=== PATIENT | male | born 1955 | race Caucasian/White ===

== ENCOUNTER 2017-10-23 20:46 | Inpatient (IN) | payer OTHER, SELFPAY ==
[2017-10-23 20:48] VITALS: BP 144/82; PULSE 120; RESP 16; TEMP 37.1; O2SAT 98; BMI 21.5
--- NOTE | 2017-10-23 21:24 | ED.VISSUMM ---
- ER Visit Summary Date of Service: 10/23/17 Chief Complaint: Abdominal mass and abdominal pain History of Present Illness: The patient is a 62 M just recently in the last several days diagnosed with a large left abdominal mass of uncertain etiology. Could be a renal mass versus lymphoma versus other. He had a CAT scan done including clinic [place] in the last 2 days. He also had a chest CT showing a left pleural effusion with metastases to his chest. Basically he has been feeling well his primary care physician told him to come to [facility] he can be admitted here and see oncology here. He denies any chest pain. He denies any hemoptysis. He has never had a DVT or PE. He denies any leg swelling. Physical Examination: Vital signs are stable. He is tachycardic at 120 his pulse ox 90% on room air. No distress. HEENT exam unremarkable neck nontender lungs clear to auscultation bilaterally. Diminished in the left base. Heart tachycardic rate of 120 no murmur. Abdomen soft he does have fullness in his left side of his abdomen. Normal bowel sounds no peritoneal signs. Moving all 4 extremities. Calves nontender no edema no cords. Neurologically is awake alert without focal motor deficits. Test Results: CBC shows a white count 13.9. H&H of 10 and 34. 510,000 platelets. No old labs available for comparison. Chemistries unremarkable except creatinine 1.62. Liver enzymes negative. Chest x-ray shows a moderate size left pleural effusion. Emergency Department Course and Treatment: 62-year-old male recently diagnosed abdominal mass that clinically and by imaging appears to be a malignancy with metastases to his left chest. He has not had a biopsy done at this time nor is he seen oncology. Treatment Plan: Repeat exam the patient is doing well at 2251. I spoke to his family. The plan will be to have him admitted to the hospitalist for oncology consultation tomorrow. Disposition: Admission Impression: Acute left abdominal mass with metastases to the left lung of uncertain etiology Left pleural effusion This note was generated with [employer] dictation software. It may contain incorrect words, spelling, and punctuation that were not noted in review of the chart prior to signing ED Disposition - Plan for ED Patient: Chief Complaint: Abd Pain Referrals: Comfort Johnson MD [Primary Care Provider] -
--- NOTE | 2017-10-23 21:27 | ED.DCSUM_ITS ---
- ER Visit Summary Date of Service: 10/23/17 Chief Complaint: Abdominal mass and abdominal pain History of Present Illness: The patient is a 62 M just recently in the last several days diagnosed with a large left abdominal mass of uncertain etiology. Could be a renal mass versus lymphoma versus other. He had a CAT scan done including clinic [place] in the last 2 days. He also had a chest CT showing a left pleural effusion with metastases to his chest. Basically he has been feeling well his primary care physician told him to come to [facility] he can be admitted here and see oncology here. He denies any chest pain. He denies any hemoptysis. He has never had a DVT or PE. He denies any leg swelling. Physical Examination: Vital signs are stable. He is tachycardic at 120 his pulse ox 90% on room air. No distress. HEENT exam unremarkable neck nontender lungs clear to auscultation bilaterally. Diminished in the left base. Heart tachycardic rate of 120 no murmur. Abdomen soft he does have fullness in his left side of his abdomen. Normal bowel sounds no peritoneal signs. Moving all 4 extremities. Calves nontender no edema no cords. Neurologically is awake alert without focal motor deficits. Test Results: CBC shows a white count 13.9. H&H of 10 and 34. 510,000 platelets. No old labs available for comparison. Chemistries unremarkable except creatinine 1.62. Liver enzymes negative. Chest x-ray shows a moderate size left pleural effusion. Emergency Department Course and Treatment: 62-year-old male recently diagnosed abdominal mass that clinically and by imaging appears to be a malignancy with metastases to his left chest. He has not had a biopsy done at this time nor is he seen oncology. Treatment Plan: Repeat exam the patient is doing well at 2251. I spoke to his family. The plan will be to have him admitted to the hospitalist for oncology consultation tomorrow. Disposition: Admission Impression: Acute left abdominal mass with metastases to the left lung of uncertain etiology Left pleural effusion This note was generated with [employer] dictation software. It may contain incorrect words, spelling, and punctuation that were not noted in review of the chart prior to signing ED Disposition - Plan for ED Patient: Chief Complaint: Abd Pain Referrals: Comfort Johnson MD [Primary Care Provider] -
[2017-10-23] MEDS: morphine 8 MG/ML Syringe 6 MG IV (21:36)
[2017-10-23] MEDS: Ondansetron 4 MG/2 ML Vial IV (21:36)
--- NOTE | 2017-10-23 21:40 | RAD_ITS ---
STUDY: X-RAY CHEST REASON FOR EXAM: Male, 62 years old. SHORTNESS OF BREATH, UPPER ABDOMEN PAIN TECHNIQUE: Single AP portable view of the chest. COMPARISON: None. FINDINGS: The lungs are clear and expanded. Large left pleural effusion. There is mild cardiac enlargement. Normal mediastinum and gilma. Normal visualized pulmonary arteries. Normal visualized aortic arch and descending thoracic aorta. Normal visualized thoracic spine. Normal visualized ribs, clavicles, and shoulders. There is no demonstrated abnormality of the visualized soft tissue structures of the upper abdomen. RAD/Chest 1 View (Portable) IMPRESSION: Large left pleural effusion. Electronically Signed: Cedrick Mahoney MD at 21:50 EDT , Service support ,
[2017-10-23 21:58] LABS: Absolute Lymphocyte Count 2.55 X10^3/ul (0.83-4.51); Absolute Neutrophil Count 9.6 X10^3/uL (2.0-7.7); Basophil# 0.07 X10^3/uL; Basophil% 0.5 % (0-1); Eosinophil# 0.63 X10^3/uL; Eosinophils% 4.5 % (0-5); Hematocrit 34.2 % (40-54); Hemoglobin 10.6 g/dl (13.0-16.5); Lymphocyte # 2.55 X10^3/ul (4.0); Lymphocyte % 18.4 % (19-41); Mean Corpuscular Hgb 25.1 pg (27.0-32.0); Mean Platelet Vol. 8.4 fl (6.2-12.0); Monocyte# 1.01 X10^3/uL; Monocyte% 7.3 % (0-10); Neutrophil # 9.59 X10^3/uL (2.7-7.7); Neutrophil % 69.2 % (47-70); Platelet Count 510 K/mm3 (150-450); RBC Distribution Width CV 13.2 % (11.6-14.6); RBC Distribution Width SD 38.7 fl (35.1-43.9); Red Blood Count 4.22 M/mm3 (4.6-6.2); White Blood Count 13.9 K/mm3 (4.4-11.0)
[2017-10-23 21:59] LABS: POSITIVE COUNT NO; POSITIVE DIFFERENTIAL NO; POSITIVE MORPHOLOGY NO
[2017-10-23 22:09] LABS: ALB/GLOB Ratio 0.7 RATIO (0.9-2.4); AST(SGOT) 21 U/L (15-37); Alanine Aminotransfer ALT/SGPT 11 U/L (16-61); Alkaline Phosphatase 93 U/L (45-117); Anion Gap 14 (5-15); BUN 22 mg/dL (7-18); BUN/Creat Ratio 13.6 RATIO (10-20); Calcium,Total 9.4 mg/dL (8.5-10.1); Chloride 98 mmol/L (98-107); Creatinine, Serum 1.62 mg/dL (0.70-1.30); EST Glomerular Filtration Rate 46 mL/min (>60); Est Glom Filt Rate - Afr Amer 56 mL/min (>60); Estimated Creatinine Clearance 46.28 ml/min; Globulin 4.2 g/dL (2.2-4.2); Glucose 115 mg/dL (74-106); Potassium 4.3 mmol/L (3.5-5.1); Protein, Total 7.2 g/dL (6.4-8.2); Sodium Level 138 mmol/L (136-145)
[2017-10-23 23:12] VITALS: BP 140/86; PULSE 108; RESP 22; O2SAT 95
[2017-10-23 23:30] VITALS: BP 135/79; PULSE 105; RESP 24; TEMP 37.1; O2SAT 95
--- NOTE | 2017-10-23 23:45 | PCM.HP.STD ---
Problem List (1) Abdominal mass Status: Acute (2) Pleural effusion, left Status: Acute History of Present Illness Date of Admission: 10/23/17 Chief Complaint: Abdominal pain The patient is a 62 year old M previously healthy male who presents with abdominal pain.. Patient stated that 3 months ago after moving some furniture he began to have back pain and left flank pain. Since her pain was not resolving he sought a consult with a primary care physician. After further investigations patient was noted to have left renal mass on Ultrasound. A Follow-up abdominal CT scan showed a 16 cm x 20 cm x [address] chest showed large left pleural effusion with lymph adenopathy; and subpleural nodular diverticula nodular density involving his lungs; metastasis could not be excluded. Reports of images were accessed through patient's online portal (via phone) and showed at the time of history taking. Because of this concerning findings patient and his PCP decided that patient should seek consult with oncology at [facility]. The was advised that he should come to ED if his symptoms worsens; and indeed he realized that coming to the emergency department will expedite the process of meeting oncologist. Associated with his symptoms is shortness of breath, nausea, fatigue and weight loss of about 20 pounds in the last 3 months. Chest x-ray at the ED confirmed large left pleural effusion. Past Medical History Medical History: Medical History (Last Updated 10/24/17 @ 00:42 by Braxton Fam MD) Hyperlipemia E78.5 Allergies No Known Allergies Allergy (Verified 10/23/17 20:50) Home Medications: Ambulatory Orders Medication Instructions Recorded Atorvastatin Calcium [Lipitor] 20 mg PO QHS 10/23/17 traMADol [Ultram (G)] 50 mg PO Q4H PRN PRN 10/23/17 Surgical History: no surgical history Psychiatric History: No pertinent psych hx Lives: With Family Smoking Status: Former smoker Tobacco Use: Non-smoker Drugs: None - *Family History Maternal History Items: Dementia Review of Systems Constitutional: Reports: Anorexia, Weight Change, Fatigue Eyes: Denies: Blurred vision, Pain HEENT: Denies: Head Aches, Sinus Congestion, Sinus Drainage Cardiovascular: Denies: Chest Pain, Palpitations Respiratory: Denies: Cough, Shortness of breath at rest, Sputum production Gastrointestinal: Reports: Abdominal Pain Genitourinary: Denies: Dysuria Musculoskeletal: Reports: Back Pain Skin: Denies: Rash, Wounds Neurological: Denies: Numbness, Tingling, Focal weakness Psychiatric: Denies: Anxiety, Depression, Homicidal Ideations, Suicidal Ideations Hematologic/ Lymphatic: Denies: Petechiae, Purpura VTE Information - Inpt Only VTE Present on Admission: No VTE Mechan Device Prophylaxis: None VTE Pharm Prophylaxis ordered?: Yes Patient Problems: Active and Suspected Problems Abdominal mass (Acute) Pleural effusion, left (Acute) - Physical Exam General: Alert, Oriented x3, Cooperative HEENT: Atraumatic, PERRLA, EOMI, Normocephalic Neck: Supple Lungs: Diminished - At the left meddle and left lower lung moreno Cardiovascular: Regular rate, No murmurs Abdomen: Tender, - - Left mid abdominal fullness Extremities: No edema, Capillary Refill Less than 3 Seconds Skin: No rashes, No breakdown Musculoskeletal: No Tenderness to Palpation of Joints or Extremities Neurological: Cranial nerves II-XII grossly intact Psych/Mental Status: Normal Affect, Appropriate Vital Signs Temp Pulse Resp BP Pulse Ox 98.7 F 105 H 24 H 135/79 H 95 10/23/17 23:30 10/23/17 23:30 10/23/17 23:30 10/23/17 23:30 10/23/17 23:30 Oxygen Delivery Method Room Air Weight: 70.1 kg Body Mass Index (BMI) 21.5 Laboratory Tests Past 24 Hrs 10/23/17 10/23/17 21:30 21:30 WBC 13.9 H RBC 4.22 L Hgb 10.6 L Hct 34.2 L MCV 81.0 MCH 25.1 L MCHC 31.0 L RDW 13.2 RDW Differential 38.7 Plt Count 510 H MPV 8.4 Immature Gran % (Auto) 0.100 Neut % (Auto) 69.2 Lymph % (Auto) 18.4 L [place] % (Auto) 7.3 Eos % (Auto) 4.5 Baso % (Auto) 0.5 Absolute Neuts (auto) 9.6 H Absolute Lymphs (auto) 2.55 Total Counted Not Reportable Sodium 138 Potassium 4.3 Chloride 98 Carbon Dioxide 26.0 Anion Gap 14 BUN 22 H Creatinine 1.62 H Estim Creat Clear Calc 46.28 Est GFR (MDRD) Af Amer 56 L Est GFR (MDRD) Non-Af 46 L BUN/Creatinine Ratio 13.6 Glucose 115 H Calcium 9.4 Total Bilirubin 0.40 AST 21 ALT 11 L Alkaline Phosphatase 93 Total Protein 7.2 Albumin 3.0 L Globulin 4.2 Albumin/Globulin Ratio 0.7 L Assessment/Plan All Active Problems Abdominal mass (Acute) Pleural effusion, left (Acute) This is a 52 previously healthy male with abdominal pain and radiographic findings of left abdominal mass and left pleural effusion . Abdominal mass As needed morphine and oxycodone for pain As needed Zofran for nausea Nursing Communication to help retrieve imaging and medical history from [facility]. Oncology consulted. Left pleural effusion Will keep the patient n.p.o. for thoracentesis. PT/INR ordered Labs for pleural fluid including cytology ordered Interventional radiology consult for thoracentesis. Hyperlipidemia Continue Lipitor DVT prophylaxis Lovenox. Code Visit Inpatient E&M: 47171 Init Hosp L2
[2017-10-24] VITALS (10 sets, daily range): BP systolic 98–144; BP diastolic 59–88; PULSE 95–103; RESP 16–20; TEMP 36.4–37.2; O2SAT 93–97; BMI 19.8
--- NOTE | 2017-10-24 | IMM_PTH ---
PATIENT: ALEXANDRIA MOSES LOC: MS3 U#:[id number] AGE/SX: 62/M ROOM: [facility] – [place] RE10/23/[address]: Dr. Fabian Lema MD : 1955 BED: 1 DIS: 10/25/2017 SPEC #: [id number] RECD: 10/25/17 11:08 STATUS: PITA REQ #: [id number] DALIA: 10/24/17 00:[address]: Fabian Lema DEPT: IMMUNOHISTOCHEMISTRY RECD BY: Isabella Dao ENTERED: 10/25/17 11:10 SP TYPE: IMMUNO OTHR DR: MD Dr. Ramos Ferguson MD Dr. Joseph Agyepong, MD Dr. Mansour Isckarus, MD Tissues: THORACIC FLUID Procedures: BCL-2 (add) BCL-6 (add) CD10 (add) CD20 (add) CD23 (add) CD3 (add) CD30 (add) CD43 (add) CD45 (add) CD5 (add) CD79A (add) CK20 (add) CK7 (add) CK8 (add) CYCLIN (add) KI-67 (add) Pankeratin (initial) PHYSICIAN & [place] [id number] SPECIMEN INFORMATION: Tissue Source: Thoracentesis fluid Clinical Info: Left pleural effusion Specimen Number: [id number] CPT code: 28086, 97698 x16 METHODOLOGY: Deparaffinized sections of prefer/formalin-fixed tissue or PAP/DQ stained slides are incubated with monoclonal/polyclonal antibodies/oligonucleotide probes. Localization is made via biotin free immunoperoxidase method. Appropriate controls are performed and reacted as expected. Results on target cell population are indicated in the following table: RESULTS: ANTIBODY / CLONE RESULT AE1-3 (AE1/AE3/PCK26) negative CK7 (OV-TL12/30) negative CK8 (36oftuS64) negative CK20 (KS20.8) negative CD3 (PS1) negative CD5 (SP10) negative CD20 (L26) positive CD43 (L60) positive CD45 (RP2/18) positive CD79a (11E3) positive CD10 (56C6) negative CD23 (1B12) negative CD30 (Fabricio-H2) negative BCL-2 (bcl-2/100/D5) positive BCL-6 (RC135I/A8) negative Cyclin D1/BCL-1 (SP4) negative Ki-67 (30-9) positive These tests were developed and their performance characteristics determined by [facility]. They may not have been cleared or approved by the U.S. Food and Drug Administration. The FDA has determined that such clearance or approval is not necessary. INTERPRETATION: Thoracentesis fluid: Consistent with involvement by non-Hodgkin B-cell lymphoma. SJ:fidelia 10/26/17 Case has been reviewed in consultation with Dr. Maurer who concurs with the above diagnosis. IDC:AM
--- NOTE | 2017-10-24 | FLU_PTH ---
PATIENT: ALEXANDRIA MOSES LOC: MS3 U#:[id number] AGE/SX: 62/M ROOM: [facility] – [place] RE10/23/[address]: Dr. Fabian Lema MD : 1955 BED: 1 DIS: 10/25/2017 SPEC #: [id number] RECD: 10/24/17 11:18 STATUS: PITA REQ #: [id number] DALIA: 10/24/17 00:[address]: Fabian Lema DEPT: CYTOLOGY RECD BY: Baudilio Slade ENTERED: 10/24/17 11:18 SP TYPE: Fluid OTHR DR: MD Dr. Ramos Ferguson MD Dr. Joseph Agyepong, MD Dr. Mansour Isckarus, MD Tissues: THORACIC FLUID Procedures: Pap Stain (control) Special Stain Group II Surgery Specimen Level IV Cell Block Cytospin Fluid HEADER OPERATION: Ultrasound-guided left thoracentesis PRE-OP DIAGNOSIS: Left pleural effusion TISSUE SUBMITTED: Thoracentesis fluid for cytology DIAGNOSIS CYTOLOGY Left thoracentesis fluid for cytology (cytospin and cell block): Atypical lymphocytes present consistent with involvement by non-Hodgkin B-cell lymphoma. See comment. SJ:rg 10/26/17 COMMENT Immunohistochemistry ([id number]) supports the above diagnosis. Please also make reference to surgical specimen [id number]. Case has been reviewed in consultation with Dr. Maurer who concurs with the above diagnosis. IDC:AM CYTOLOGY STUDY Slides are reviewed. CYTOLOGY GROSS Received is 100 ml of red cloudy fluid labeled with the patient's name and and designated per the requisition as thoracentesis. Submitted for cytology preparation including cell block. 10/24/17 TC:0 CPT: 84404, 43641
[2017-10-24 00:35] LABS: International Normalized Ratio 1.1; Prothrombin Time (Protime)PT. 13.8 SECONDS (11.7-14.9)
--- NOTE | 2017-10-24 06:00 | US_ITS ---
PROCEDURE: ULTRASOUND GUIDED THORACENTESIS. DATE: October 24, 2017. INDICATION: Male, 62 years old. Left pleural effusion PHYSICIAN: Ramos Gore M.D. PROCEDURE: The risks, benefits, and alternatives to the procedure were explained to the patient. The specific risks of bleeding, infection, and pneumothorax requiring chest tube insertion were discussed and accepted. Written informed consent was obtained. Ultrasonographic evaluation of the left lower pleural space was carried out. An adequate pocket was identified. The patient was placed in the sitting, upright position. The overlying skin was prepped and draped in sterile fashion. 1% lidocaine was administered subcutaneously for local anesthesia. Under ultrasound guidance, a 6 Serbian thoracentesis needle/catheter system was advanced into the left posterior lower pleural fluid collection. Approximately 1020 mL of trip-colored fluid was drained. The catheter was removed, and a sterile dressing was applied. A specimen was collected and sent to the laboratory for analysis, as requested by the referring clinician. The patient tolerated the procedure well. A chest x-ray was ordered. US/Thoracentesis W US IMPRESSION: Ultrasound-guided left thoracentesis. Electronically Signed: Ramos Gore MD at 10:46 EDT Tel [phone], Service support ,
[2017-10-24 06:11] LABS: Hemoglobin 10.3 g/dl (13.0-16.5); Mean Corp Hgb Conc 31.2 g/gl (32-36); Mean Corpuscular Hgb 25.8 pg (27.0-32.0); Mean Corpuscular Volume 82.5 fL (80-94); Mean Platelet Vol. 8.6 fl (6.2-12.0); Platelet Count 505 K/mm3 (150-450); RBC Distribution Width CV 13.2 % (11.6-14.6); White Blood Count 10.9 K/mm3 (4.4-11.0)
[2017-10-24 06:13] LABS: LDH 358 U/L (87-241)
[2017-10-24 06:14] LABS: Scan Indicated on CBC? Y/N NO
--- NOTE | 2017-10-24 08:08 | PCM.PN.HOSP ---
Patient Problems: Active and Suspected Problems (Last Updated 10/24/17 @ 00:42 by Braxton Fam MD) Abdominal mass (Acute) Pleural effusion, left (Acute) Subjective: Patient is a 62 year old gentleman presented with abdominal pain associated with significant weight loss over the last couple of months patient was found to have a large sided left-sided pleural effusion for which she has been admitted for subsequent evaluation in the hospital. He is due to undergo ultrasound-guided thoracocentesis Objective: GENERAL: Appears cachectic HEENT: Clear conjunctiva, NECK; supple, normal thyroid, CHEST: Diminished to auscultation bilaterally, HEART: Regular S1 S2, no audible murmurs ABDOMEN: soft, non-tender, normoactive bowel sounds, RECTAL: deferred EXTREMITIES: No edema, no cyanosis. PROFESSOR OF CHEMICAL ENGINEERING: Awake; no lateralizing signs. SKIN: No Rash Vitals/I&O's: Vital Signs Temp Pulse Resp BP Pulse Ox 98.4 F 100 18 133/88 H 93 10/24/17 06:15 10/24/17 06:15 10/24/17 06:15 10/24/17 06:15 10/24/17 06:15 Oxygen Delivery Method Room Air Weight: 64.5 kg Body Mass Index (BMI) 19.8 Intake and Output for Last 24 Hours 10/22/17 10/23/17 10/24/17 23:59 23:59 23:59 Intake Total 0 / 0 Balance 0 / 0 Laboratory Results 10/24/17 05:30: Lactate Dehydrogenase 358 H 10/24/17 05:30: WBC 10.9, RBC 4.00 L, Hgb 10.3 L, Hct 33.0 L, MCV 82.5, MCH 25.8 L, MCHC 31.2 L, RDW 13.2, RDW Differential 39.0, Plt Count 505 H, MPV 8.6 Current Medications Atorvastatin Calcium (Lipitor) 20 mg PO QHS CARMELLA Bisacodyl (Dulcolax) 5 mg PO DAILY PRN PRN PRN Reason: Constipation Enoxaparin Sodium (Lovenox) 40 mg SC DAILY@1000 CARMELLA Last Admin: 10/24/17 07:34 Dose: Not Given Magnesium Hydroxide (Milk Of Magnesia) 30 ml PO DAILY PRN PRN PRN Reason: Constipation Morphine Sulfate () 1 - 2 mg IV Q4H PRN PRN PRN Reason: PAIN Ondansetron HCl (Zofran) 4 mg IV Q6H PRN PRN PRN Reason: NAUSEA/VOMITING Oxycodone HCl (Oxyir) 5 - 10 mg PO Q4H PRN PRN PRN Reason: PAIN Sodium Chloride () 5 - 30 ml IV UD PRN PRN Reason: SALINE FLUSH Medical Necessity - Tobacco Use Smoking Status: Former smoker Tobacco Use: Non-smoker Assessment/Plan All Active Problems (Last Updated 10/24/17 @ 00:42 by Braxton Fam MD) Abdominal mass (Acute) Pleural effusion, left (Acute) Patient is a 62-year-old gentleman who presents with abdominal pain CT obtained as outpatient apparently demonstrated 16 x 20 x [address] of the chest also demonstrated large left-sided pleural effusion with lymphadenopathy and nodular density involving the lungs metastatic disease could not be ruled out subsequently admitted to regular nursing floor for further management 1. Abdominal mass patient to be malignant. Requisition sent for records 2. Large sided left-sided pleural effusion ultrasound-guided thoracocentesis ordered 3. Suspected metastatic lung disease consult placed to pulmonary medicine 4. Dyslipidemia-patient is on statin therapy, continued at home dose 5. DVT prophylaxis SC enoxaparin Clinical Impression(s) from Imaging Studies Chest X-Ray 10/23/17 21:40 IMPRESSION: Large left pleural effusion. Electronically Signed: Cedrick Mahoney MD at 21:50 EDT , Service support , Active Medications Atorvastatin Calcium (Lipitor) 20 mg PO QHS CARMELLA Bisacodyl (Dulcolax) 5 mg PO DAILY PRN PRN PRN Reason: Constipation Enoxaparin Sodium (Lovenox) 40 mg SC DAILY@1000 CARMELLA Last Admin: 10/24/17 07:34 Dose: Not Given Magnesium Hydroxide (Milk Of Magnesia) 30 ml PO DAILY PRN PRN PRN Reason: Constipation Morphine Sulfate () 1 - 2 mg IV Q4H PRN PRN PRN Reason: PAIN Ondansetron HCl (Zofran) 4 mg IV Q6H PRN PRN PRN Reason: NAUSEA/VOMITING Oxycodone HCl (Oxyir) 5 - 10 mg PO Q4H PRN PRN PRN Reason: PAIN Sodium Chloride () 5 - 30 ml IV UD PRN PRN Reason: SALINE FLUSH Code Visit Inpatient E&M: 18832 Subs Hosp L3
--- NOTE | 2017-10-24 08:17 | CT_ITS ---
STUDY: CT ABDOMEN AND PELVIS WITH CONTRAST REASON FOR EXAM: Male, 62 years old. Left-sided mass. 20 pound weight loss in 3 months. Left pleural effusion. RADIATION DOSAGE (If Supplied By Facility): CTDIvol = ( 0 ) mGy, DLP = ( 0 ) mGycm TECHNIQUE: Transaxial images were obtained from the dome of the diaphragm to the symphysis pubis without oral contrast. 100 ml of Isovue 300 contrast was administered. Sagittal and coronal images were reconstructed. Individualized dose optimization techniques were used for this CT. COMPARISON: None. FINDINGS: Left pleural effusion with underlying infiltration and/or atelectasis mild increased markings in the right lung base. The visualized portions of the heart are within normal limits. There is a 16.4 cm x 17.9 cm x 17.9 cm inhomogeneous mass in the left upper quadrant and left mid abdomen displacing the spleen anteriorly. The left kidney is not visualized separately from this mass. There is also evidence of multiple soft tissue masses scattered throughout the abdomen as well as within the mesentery and in the region of the arlette hepatis. These masses extend into the pelvis in the retroperitoneal region and extending into the lateral aspects of the pelvis worse on the left side. Findings are suggestive of diffuse lymphadenopathy. A retroperitoneal sarcoma cannot be ruled out. Normal liver. Contrast is seen within the gallbladder lumen. Normal spleen. Normal pancreas. Normal bilateral adrenal glands. Small right renal cysts. The left kidney is engulfed within the large soft tissue mass. Normal visualized stomach. Normal small intestine. Normal colon. The appendix is visualized and appears normal. Normal abdominal aorta. Normal inferior vena cava. There is retroperitoneal lymphadenopathy with enlarged nodes greater than 10-15mm in the short axis. Normal urinary bladder. There are prostatic calcifications. Normal abdominal wall. There are degenerative changes of the visualized lumbar spine. CT/Abdomen/Pelvis WITH Contrast IMPRESSION: Extensive masses in the abdomen and pelvis as described. The differential diagnoses should include diffuse extensive lymphadenopathy or sarcoma. The left kidney is involved within this mass. A primary left renal cell carcinoma is less likely. Left pleural effusion with underlying atelectasis. Electronically Signed: Ramos Gore MD at 10:27 EDT Tel [phone], Service support ,
--- NOTE | 2017-10-24 08:17 | CT_ITS ---
STUDY: CT CHEST WITHOUT CONTRAST REASON FOR EXAM: Male, 62 years old. Left abdominal mass and 20 pound weight loss. Left pleural effusion. RADIATION DOSAGE (If Supplied By Facility): CTDIvol = ( 13.01 ) mGy, DLP = ( 1815.08 ) mGycm TECHNIQUE: Transaxial imaging was performed without the administration of intravenous contrast material. Multiplanar coronal and sagittal images were reformatted. Individualized dose optimization techniques were used for this CT. COMPARISON: None. FINDINGS: Large left pleural effusion with volume loss and atelectasis in the left lung. There is shift of the heart and mediastinal structures towards the left side of the midline. The left lung is well aerated. Mild increased markings are also seen in the left upper lobe suggestive of compressive atelectasis. Mild increased markings at the right lung base. Normal heart and pericardium. Normal mediastinum. Normal hilar regions. Normal unenhanced pulmonary arteries. Normal aorta arch and descending thoracic aorta. Normal osseous structures. Large inhomogeneous masses are seen in the upper abdomen. These were detailed on the separate CT scan of the abdomen report. CT/Chest WITH Contrast IMPRESSION: Large left pleural effusion with underlying atelectasis and/or infiltration. Mild increased markings in the left upper lobe. Upper abdominal masses as described. Electronically Signed: Ramos Gore MD at 10:29 EDT Tel [phone], Service support ,
--- NOTE | 2017-10-24 09:09 | NURSING ---
Pt off of floor at CT- call recieved from [facility] whom would like pt at 0930 for thoracentesis, will contact CT to take pt to US when CT is finished
--- NOTE | 2017-10-24 10:05 | RAD_ITS ---
STUDY: X-RAY CHEST REASON FOR EXAM: Male, 62 years old. The patient is status post left thoracentesis. TECHNIQUE: AP expiration and inspiration views. COMPARISON: Comparison is made with prior study dated October 23, 2017. FINDINGS: The patient is status post left thoracentesis. Residual small left pleural effusion with underlying infiltration and/or atelectasis. There is no evidence of pneumothorax. RAD/Chest Insp/Exp 2 View IMPRESSION: Status post left thoracentesis. Small residual left pleural effusion with underlying infiltration and/or atelectasis. Electronically Signed: Ramos Gore MD at 11:07 EDT Tel [phone], Service support ,
[2017-10-24 10:22] LABS: Cytology, Body Fluid / CSF SEE PATHOLOGY REPORT
[2017-10-24 10:43] LABS: Body Fluid Mononuclear WBC # 1.456 10^3/uL; Body Fluid Mononuclear WBC % 90.5 %; Body Fluid Polynuclear WBC # 0.153 10^3/uL; Body Fluid Polynuclear WBC % 9.5 %; Body Fluid Total Cells Counted 1.766 10^3/ul; White Blood Count/Body Fluid 1.609 10^3/uL
[2017-10-24 12:04] LABS: Glucose, Body Fluid 64 mg/dL (40-70); LDH,Body Fluid 370 Units/l (Not Establ.)
[2017-10-24 12:29] LABS: Appearance/Body Fluid SL CLDY; Auto B Fluid Analyzer BKGD Ct COUNTS W/IN LIMITS (W/IN LIMITS); Color/Body Fluid YELLOW; Source- Body Fluid THORACENTESIS
[2017-10-24 12:32] LABS: Lymphocytes 32 %; Monocytes 17 %; Neutrophil (Segs) 12 %; Other Cell Type/BF 39 %
[2017-10-24 12:34] LABS: Body Fluid QC Type(s) BF1Q
--- NOTE | 2017-10-24 14:15 | CASEMGMT ---
RN REX Face to Face with patient for initial transition planning/care coordination assessment. RN CM introduced self and role at [facility]. Patient lying in bed, alert and oriented, family at bedside. Patient willing to participate in assessment and is able to answer all questions appropriately. Care providers, pharmacy, and demographics verified. See link attached. Patient wishes to discharge home, denies need for home health at this time. Patient states he has no further needs or concerns at this time. CM to follow for discharge planning needs that may arise. Disposition Plan: Patient to discharge home with family support and follow-up plans in place.
--- NOTE | 2017-10-24 16:43 | ONC.CON.INP2 ---
- Problem List (1) Abdominal mass Status: Acute (2) Lymphadenopathy Status: Acute (3) Pleural effusion, left Status: Acute Consult Referring Physician: Hospitalist service Consult Results: Left upper quadrant abdominal mass, left pleural effusion and lymphadenopathy Subjective Date of Service:: 10/24/17 Chief Complaint: abd pain and SOB History of Present Illness: Patient is a 62-year-old male was no prior history of malignancy who has had increasing left upper quadrant abdominal pain over the past 3 months. Initially he thought it was a muscle strain after moving a couch but as symptoms progressed he was seen by his family physician at [place] and CT scans of the chest abdomen and pelvis at an outside hospital and again at [facility] revealed generalized lymph node enlargement, a large left pleural effusion and a huge left upper quadrant abdominal mass. The patient experienced increasing pain and dyspnea and came to the emergency room on October 23 and was admitted. A therapeutic and diagnostic thoracocentesis was done October 24 where a liter of trip colored fluid was drained and sent for pathology. The patient experienced improvement in his dyspnea with the procedure. Past Medical/Surgical History: Past Medical History - Most Recent Inpatient Visit Past Medical History Start: 10/24/17 00:08 Text: Status: Complete Freq: ONCE Protocol: Document 10/24/17 00:08 [facility] (Rec: 10/24/17 00:22 [facility] [id number]) BMI Required to complete PMH What is Patient's BMI 19.8 Past Medical History Unable History Recalled No Query Text:Pt Unable/Family Not Present Neurologic Medical History Hx Stroke/TIA No Hx Dementia/Alzheimer's No Hx Parkinson's Disease No Hx Seizures No Hx Multiple Sclerosis No Hx Migraines No Cardiac Medical History VTE Present on Admission No Hx of Deep Vein Thrombosis/VTE/PE No Hx Hypertension No Hx Chest Pain/Angina No Hx Heart Attack No Hx Cardiac Surgery/Stents/Etc. No Hx Heart Failure No Hx Pacemaker/AICD No Hx Irregular Heartbeat and/or Afib Yes Hx Anticoagulant Therapy No Query Text:(Coumadin, Aspirin, Plavix, Xarelto, etc.) Hx Pain in Legs when Walking/Leg Cramps No Respiratory Medical History Hx COPD No Hx Emphysema No Hx Smoking Yes Smoking Status Former smoker Hx Tobacco Use in last 12 months Yes Sent to [facility] Yes Hx Sleep Apnea No Do you snore loudly (louder than talking No or can be heard through closed doors)? Do you often feel tired/ fatigued/ No sleepy during daytime? Has anyone observed you stop breathing No during sleep? STOP Results Negative GI Medical History Hx Ulcer No Hx Hepatitis No Hx Cirrhosis No Hx GI Bleed No Hx Unplanned Weight Loss Yes Genitourinary Medical History Indwelling Catheter in Place on Arrival/ No Admission Hx Renal Disease No Hx Dialysis No Musculoskeletal History Hx Arthritis No Hx Rheumatoid Arthritis No Endocrine Medical History Hx Diabetes No Hx Thyroid Disease No Hematologic Medical History Hx of Blood Transfusion No Hx of Transfusion in last 3 Months No Ever experience any problems with No transfusion(s)? Hx of Preganancy in last 3 Months N/A Nurse Filling Out Transfusion & CKELLY Questions: Date: 10/24/17 Time: 00:21 Psycho/Social Medical History Hx Depression No Hx Anxiety No Hx Behavior Disorder No Hx Alcohol Use No Hx Substance Use No Other Medical History Hx Blood Disorders No Hx Anemia No Hx Cancer Yes: New Dx of CA Hx Drug Resistant Organism No Wound/Pressure Injury Present on Arrival No /Admission Query Text:If yes, chart assessment in Shift/Clinical Findings Central Line/PICC/VAD Present on Arrival No /Admission Antibiotics within last 7 days? No Methicillin Resistant Staphylococcus aureus Screening Active MRSA No Risk for Readmission Number of Risk Factors 2 At Risk for Readmission Patient is Not at Risk Patient is eligible for Call Back N Past Medical History (Last Updated 10/24/17 @ 16:29 by Rosie Correa) Hyperlipemia (Acute) Pleural effusion (Acute) Past Surgical History (Last Updated 10/24/17 @ 16:29 by Rosie Correa) History of thoracentesis (Acute) Maternal Family History: Family History (Last Updated 10/24/17 @ 16:25 by Rosie Correa) Other No pertinent family history Family History: Dementia - Social History Lives: With Family Smoking Status: Former smoker Tobacco Use: Non-smoker Drugs: None Allergies/Adverse Reactions: Allergy/AdvReac Type Severity Reaction Status Date / Time No Known Allergies Allergy Verified 10/23/17 20:50 Review of Systems Constitutional:: Reports: Weakness, Fatigue, Weight loss - 25 pound weight loss over the course of the past 3 months, Appetite change. Denies: Fever, Sweats, Chills Cardiovascular:: Reports: Dyspnea on exertion, Shortness of breath. Denies: Chest pain, Palpitations, Orthopnea, PND Respiratory: Reports: Shortness of Breath, Shortness of breath upon exertion. Denies: Cough, Hemoptysis, Wheezing Gastrointestinal:: Reports: Abdominal pain - Left upper quadrant consistent with no relation to meals no obvious aggravating factors and some relief with analgesia. Denies: Nausea, Vomiting, Diarrhea, Constipation, Hematochezia Genitourinary: Reports: - - Urine is dark colored but no blood. Denies: Dysuria, Hematuria, Flank pain Musculoskeletal:: Denies: Back pain, Myalgia, Arthralgia Skin: Denies: Rash, Skin Changes, Wounds Neurological:: Denies: Headache, Dizziness, Visual changes, Tinnitus, Hearing loss Psychiatric: Denies: Anxiety, Depression, Homicidal Ideations, Suicidal Ideations Vital Signs Height 5 ft 11 in Weight: 64.5 kg Weight in Pounds 142.2 lbs Pulse Ox 94 Temperature 98.3 F Pulse Rate 95 Respiratory Rate 16 Blood Pressure [BP] 110/70 Blood Pressure 134/72 Blood Pressure Position [BP] Sitting Blood Pressure Position Semi-Fowlers - Physical Exam General: Alert, Oriented x3, No apparent distress, - - Thin built, ECOG 1 HEENT: Atraumatic, PERRLA, EOMI, Normocephalic Oropharynx:: Dry mucosa Neck:: Supple, Trachea midline. Negative for: JVD, bilateral Cardiac:: Regular rate, Regular rhythm, Normal S1, Normal S2. Negative for: Murmur Lungs: Clear to auscultation, Diminished - Over the left lung bases consistent with a residual effusion, Excusion symmetrical. Negative for: Rhonchi, Wheezes Abdomen:: Soft, Non-tender, Non-distended. Negative for: Hepatosplenomegaly Extremities:: Negative for: Cyanosis, Edema Neurological: Neuro grossly intact Skin:: Negative for: Lesions, Rash, Petechiae, Ecchymosis Psychiatric:: Appropriate affect, Euthymic Lymphatics:: Supraclavicular lymphadenopathy - Left supraclavicular lymph node mass measuring 3 cm in diameter. Negative for: Cervical lymphadenopathy, Axillary lymphadenopathy Laboratory Data: Laboratory Tests 10/24/17 10/24/17 10/24/17 Range/Units 09:00 09:00 05:30 WBC 10.9 (4.4-11.0) K/mm3 RBC 4.00 L (4.6-6.2) M/mm3 Hgb 10.3 L (13.0-16.5) g/dl Hct 33.0 L (40-54) % MCV 82.5 (80-94) fL MCH 25.8 L (27.0-32.0) pg MCHC 31.2 L (32-36) g/gl RDW 13.2 (11.6-14.6) % RDW Differential 39.0 (35.1-43.9) fl Plt Count 505 H (150-450) K/mm3 MPV 8.6 (6.2-12.0) fl Lactate Dehydrogenase (87-241) U/L Fluid Source THORACENTESIS Fluid Color YELLOW Fluid Appearance SL CLDY Fluid WBC 1.609 10^3/uL Fluid RBC 0.99738 10^6/ul Fluid Tot Cell Count 1.766 10^3/ul Fld Polynuclear WBCs # 0.153 10^3/uL Fld Polynuclear WBCs % 9.5 % Fluid Mononuclear WBCs 1.456 10^3/uL Fld Mononuclear WBCs % 90.5 % Fluid Neutrophils 12 % Fluid Lymphocytes 32 % Fluid Monocytes 17 % Fluid Other Cells 39 % Fl Pathologist Comment May follow Fluid Glucose 64 (40-70) mg/dL Fluid LDH 370 (Not Establ.) Units/l Fluid Comment 2 SEE COMMENT 10/24/17 Range/Units 05:30 WBC (4.4-11.0) K/mm3 RBC (4.6-6.2) M/mm3 Hgb (13.0-16.5) g/dl Hct (40-54) % MCV (80-94) fL MCH (27.0-32.0) pg MCHC (32-36) g/gl RDW (11.6-14.6) % RDW Differential (35.1-43.9) fl Plt Count (150-450) K/mm3 MPV (6.2-12.0) fl Lactate Dehydrogenase 358 H (87-241) U/L Fluid Source Fluid Color Fluid Appearance Fluid WBC 10^3/uL Fluid RBC 10^6/ul Fluid Tot Cell Count 10^3/ul Fld Polynuclear WBCs # 10^3/uL Fld Polynuclear WBCs % % Fluid Mononuclear WBCs 10^3/uL Fld Mononuclear WBCs % % Fluid Neutrophils % Fluid Lymphocytes % Fluid Monocytes % Fluid Other Cells % Fl Pathologist Comment Fluid Glucose (40-70) mg/dL Fluid LDH (Not Establ.) Units/l Fluid Comment 2 Diagnostic Data: Diagnostic Data Thoracentesis Ultrasound 10/24/17 06:00 IMPRESSION: Ultrasound-guided left thoracentesis. Electronically Signed: Ramos Gore MD at 10:46 EDT Tel [phone], Service support , Abdomen/Pelvis CT 10/24/17 08:17 IMPRESSION: Extensive masses in the abdomen and pelvis as described. The differential diagnoses should include diffuse extensive lymphadenopathy or sarcoma. The left kidney is involved within this mass. A primary left renal cell carcinoma is less likely. Left pleural effusion with underlying atelectasis. Electronically Signed: Ramos Gore MD at 10:27 EDT Tel [phone], Service support , Chest CT 10/24/17 08:17 IMPRESSION: Large left pleural effusion with underlying atelectasis and/or infiltration. Mild increased markings in the left upper lobe. Upper abdominal masses as described. Electronically Signed: Ramos Gore MD at 10:29 EDT Tel [phone], Service support , Chest X-Ray 10/24/17 10:05 IMPRESSION: Status post left thoracentesis. Small residual left pleural effusion with underlying infiltration and/or atelectasis. Electronically Signed: Ramos Gore MD at 11:07 EDT Tel [phone], Service support , I personally reviewed the CT images of the chest abdomen and pelvis done at [facility] October 23 and summary of the findings is in the HPI. Assessment and Plan 62-year-old male presenting with dyspnea and left upper quadrant abdominal pain found to have generalized lymphadenopathy, left pleural effusion and an extensive left upper quadrant abdominal mass. Patient had some symptomatic relief of his dyspnea after drainage of a 1 L trip colored pleural fluid. Cytology is pending. These findings are most concerning for an advanced malignancy either metastatic or primary lymphoma. I do not believe that fluid cytology alone will provide sufficient information and a tissue biopsy is advised. I discussed his case with and will arrange for a CT-guided abdominal mass core biopsy. If that is insufficient and open biopsy of the left supraclavicular mass can be contemplated. I met with the patient and significant lady friend and her daughter. Impression and plan discussed. Following that biopsy he can be discharged and I will follow him in the office tentatively on October 30 if pathology is ready. Further workup depends on pathology. Medications: Prescriptions This Visit Medication Instructions Recorded Atorvastatin Calcium [Lipitor] 20 mg PO QHS 10/23/17 traMADol [Ultram (G)] 50 mg PO Q4H PRN PRN 10/23/17 Medications Added to Medication List This Visit Category Date Time Status Atorvastatin Calcium [Lipitor] Med 10/24/17 22:00 Active 20 mg PO QHS Enoxaparin [Lovenox] Med 10/24/17 10:00 Active 40 mg SC DAILY@1000 Ensure Enlive Med 10/24/17 14:00 Active 120 ml PO 4X/DAY Primary Care Provider: Comfort Johnson MD Referring Provider:
--- NOTE | 2017-10-24 16:55 | CON.PCM_ITS ---
- Problem List (1) Abdominal mass Status: Acute (2) Lymphadenopathy Status: Acute (3) Pleural effusion, left Status: Acute Consult Referring Physician: Hospitalist service Consult Results: Left upper quadrant abdominal mass, left pleural effusion and lymphadenopathy Subjective Date of Service:: 10/24/17 Chief Complaint: abd pain and SOB History of Present Illness: Patient is a 62-year-old male was no prior history of malignancy who has had increasing left upper quadrant abdominal pain over the past 3 months. Initially he thought it was a muscle strain after moving a couch but as symptoms progressed he was seen by his family physician at [place] and CT scans of the chest abdomen and pelvis at an outside hospital and again at [facility] revealed generalized lymph node enlargement, a large left pleural effusion and a huge left upper quadrant abdominal mass. The patient experienced increasing pain and dyspnea and came to the emergency room on October 23 and was admitted. A therapeutic and diagnostic thoracocentesis was done October 24 where a liter of trip colored fluid was drained and sent for pathology. The patient experienced improvement in his dyspnea with the procedure. Past Medical/Surgical History: Past Medical History - Most Recent Inpatient Visit Past Medical History Start: 10/24/17 00: 08 Text: Status: Complete Freq: ONCE Protocol: Document 10/24/17 00:08 [facility] (Rec: 10/24/17 00:22 [facility] [id number]) BMI Required to complete PMH What is Patient's BMI 19.8 Past Medical History Unable History Recalled No Query Text:Pt Unable/Family Not Present Neurologic Medical History Hx Stroke/TIA No Hx Dementia/Alzheimer's No Hx Parkinson's Disease No Hx Seizures No Hx Multiple Sclerosis No Hx Migraines No Cardiac Medical History VTE Present on Admission No Hx of Deep Vein Thrombosis/VTE/PE No Hx Hypertension No Hx Chest Pain/Angina No Hx Heart Attack No Hx Cardiac Surgery/Stents/Etc. No Hx Heart Failure No Hx Pacemaker/AICD No Hx Irregular Heartbeat and/or Afib Yes Hx Anticoagulant Therapy No Query Text:(Coumadin, Aspirin, Plavix, Xarelto, etc.) Hx Pain in Legs when Walking/Leg Cramps No Respiratory Medical History Hx COPD No Hx Emphysema No Hx Smoking Yes Smoking Status Former smoker Hx Tobacco Use in last 12 months Yes Sent to [facility] Yes Hx Sleep Apnea No Do you snore loudly (louder than talking No or can be heard through closed doors)? Do you often feel tired/ fatigued/ No sleepy during daytime? Has anyone observed you stop breathing No during sleep? STOP Results Negative GI Medical History Hx Ulcer No Hx Hepatitis No Hx Cirrhosis No Hx GI Bleed No Hx Unplanned Weight Loss Yes Genitourinary Medical History Indwelling Catheter in Place on Arrival/ No Admission Hx Renal Disease No Hx Dialysis No Musculoskeletal History Hx Arthritis No Hx Rheumatoid Arthritis No Endocrine Medical History Hx Diabetes No Hx Thyroid Disease No Hematologic Medical History Hx of Blood Transfusion No Hx of Transfusion in last 3 Months No Ever experience any problems with No transfusion(s)? Hx of Preganancy in last 3 Months N/A Nurse Filling Out Transfusion & CKELLY Questions: Date: 10/24/17 Time: 00:21 Psycho/Social Medical History Hx Depression No Hx Anxiety No Hx Behavior Disorder No Hx Alcohol Use No Hx Substance Use No Other Medical History Hx Blood Disorders No Hx Anemia No Hx Cancer Yes: New Dx of CA Hx Drug Resistant Organism No Wound/Pressure Injury Present on Arrival No /Admission Query Text:If yes, chart assessment in Shift/Clinical Findings Central Line/PICC/VAD Present on Arrival No /Admission Antibiotics within last 7 days? No Methicillin Resistant Staphylococcus aureus Screening Active MRSA No Risk for Readmission Number of Risk Factors 2 At Risk for Readmission Patient is Not at Risk Patient is eligible for Call Back N Past Medical History (Last Updated 10/24/17 @ 16:29 by Rosie Correa) Hyperlipemia (Acute) Pleural effusion (Acute) Past Surgical History (Last Updated 10/24/17 @ 16:29 by Rosie Correa) History of thoracentesis (Acute) Maternal Family History: Family History (Last Updated 10/24/17 @ 16:25 by Rosie Correa) Other No pertinent family history Family History: Dementia - Social History Lives: With Family Smoking Status: Former smoker Tobacco Use: Non-smoker Drugs: None Allergies/Adverse Reactions: Allergy/AdvReac Type Severity Reaction Status Date / Time No Known Allergies Allergy Verified 10/23/17 20:50 Review of Systems Constitutional:: Reports: Weakness, Fatigue, Weight loss - 25 pound weight loss over the course of the past 3 months, Appetite change. Denies: Fever, Sweats, Chills Cardiovascular:: Reports: Dyspnea on exertion, Shortness of breath. Denies: Chest pain, Palpitations, Orthopnea, PND Respiratory: Reports: Shortness of Breath, Shortness of breath upon exertion. Denies: Cough, Hemoptysis, Wheezing Gastrointestinal:: Reports: Abdominal pain - Left upper quadrant consistent with no relation to meals no obvious aggravating factors and some relief with analgesia. Denies: Nausea, Vomiting, Diarrhea, Constipation, Hematochezia Genitourinary: Reports: - - Urine is dark colored but no blood. Denies: Dysuria , Hematuria, Flank pain Musculoskeletal:: Denies: Back pain, Myalgia, Arthralgia Skin: Denies: Rash, Skin Changes, Wounds Neurological:: Denies: Headache, Dizziness, Visual changes, Tinnitus, Hearing loss Psychiatric: Denies: Anxiety, Depression, Homicidal Ideations, Suicidal Ideations Vital Signs Height 5 ft 11 in Weight: 64.5 kg Weight in Pounds 142.2 lbs Pulse Ox 94 Temperature 98.3 F Pulse Rate 95 Respiratory Rate 16 Blood Pressure [BP] 110/70 Blood Pressure 134/72 Blood Pressure Position [BP] Sitting Blood Pressure Position Semi-Fowlers - Physical Exam General: Alert, Oriented x3, No apparent distress, - - Thin built, ECOG 1 HEENT: Atraumatic, PERRLA, EOMI, Normocephalic Oropharynx:: Dry mucosa Neck:: Supple, Trachea midline. Negative for: JVD, bilateral Cardiac:: Regular rate, Regular rhythm, Normal S1, Normal S2. Negative for: Murmur Lungs: Clear to auscultation, Diminished - Over the left lung bases consistent with a residual effusion, Excusion symmetrical. Negative for: Rhonchi, Wheezes Abdomen:: Soft, Non-tender, Non-distended. Negative for: Hepatosplenomegaly Extremities:: Negative for: Cyanosis, Edema Neurological: Neuro grossly intact Skin:: Negative for: Lesions, Rash, Petechiae, Ecchymosis Psychiatric:: Appropriate affect, Euthymic Lymphatics:: Supraclavicular lymphadenopathy - Left supraclavicular lymph node mass measuring 3 cm in diameter. Negative for: Cervical lymphadenopathy, Axillary lymphadenopathy Laboratory Data: Laboratory Tests 3 10/24/17 10/24/17 10/24/17 Range/Units 09:00 09:00 05:30 WBC 10.9 (4.4-11.0) K/mm3 RBC 4.00 L (4.6-6.2) M/mm3 Hgb 10.3 L (13.0-16.5) g/dl Hct 33.0 L (40-54) % MCV 82.5 (80-94) fL MCH 25.8 L (27.0-32.0) pg MCHC 31.2 L (32-36) g/gl RDW 13.2 (11.6-14.6) % RDW Differential 39.0 (35.1-43.9) fl Plt Count 505 H (150-450) K/mm3 MPV 8.6 (6.2-12.0) fl Lactate Dehydrogenase (87-241) U/L Fluid Source THORACENTESIS Fluid Color YELLOW Fluid Appearance SL CLDY Fluid WBC 1.609 10^3/uL Fluid RBC 0.12038 10^6/ul Fluid Tot Cell Count 1.766 10^3/ul Fld Polynuclear WBCs # 0.153 10^3/uL Fld Polynuclear WBCs % 9.5 % Fluid Mononuclear WBCs 1.456 10^3/uL Fld Mononuclear WBCs % 90.5 % Fluid Neutrophils 12 % Fluid Lymphocytes 32 % Fluid Monocytes 17 % Fluid Other Cells 39 % Fl Pathologist Comment May follow Fluid Glucose 64 (40-70) mg/dL Fluid LDH 370 (Not Establ.) Units/l Fluid Comment 2 SEE COMMENT 3 10/24/17 Range/Units 05:30 WBC (4.4-11.0) K/mm3 RBC (4.6-6.2) M/mm3 Hgb (13.0-16.5) g/dl Hct (40-54) % MCV (80-94) fL MCH (27.0-32.0) pg MCHC (32-36) g/gl RDW (11.6-14.6) % RDW Differential (35.1-43.9) fl Plt Count (150-450) K/mm3 MPV (6.2-12.0) fl Lactate Dehydrogenase 358 H (87-241) U/L Fluid Source Fluid Color Fluid Appearance Fluid WBC 10^3/uL Fluid RBC 10^6/ul Fluid Tot Cell Count 10^3/ul Fld Polynuclear WBCs # 10^3/uL Fld Polynuclear WBCs % % Fluid Mononuclear WBCs 10^3/uL Fld Mononuclear WBCs % % Fluid Neutrophils % Fluid Lymphocytes % Fluid Monocytes % Fluid Other Cells % Fl Pathologist Comment Fluid Glucose (40-70) mg/dL Fluid LDH (Not Establ.) Units/l Fluid Comment 2 Diagnostic Data: Diagnostic Data Thoracentesis Ultrasound 10/24/17 06:00 IMPRESSION: Ultrasound-guided left thoracentesis. Electronically Signed: Ramos Gore MD at 10:46 EDT Tel [phone], Service support , Abdomen/Pelvis CT 10/24/17 08:17 IMPRESSION: Extensive masses in the abdomen and pelvis as described. The differential diagnoses should include diffuse extensive lymphadenopathy or sarcoma. The left kidney is involved within this mass. A primary left renal cell carcinoma is less likely. Left pleural effusion with underlying atelectasis. Electronically Signed: Ramos Gore MD at 10:27 EDT Tel [phone], Service support , Chest CT 10/24/17 08:17 IMPRESSION: Large left pleural effusion with underlying atelectasis and/or infiltration. Mild increased markings in the left upper lobe. Upper abdominal masses as described. Electronically Signed: Ramos Gore MD at 10:29 EDT Tel [phone], Service support , Chest X-Ray 10/24/17 10:05 IMPRESSION: Status post left thoracentesis. Small residual left pleural effusion with underlying infiltration and/or atelectasis. Electronically Signed: Ramos Gore MD at 11:07 EDT Tel [phone], Service support , I personally reviewed the CT images of the chest abdomen and pelvis done at [facility] October 23 and summary of the findings is in the HPI. Assessment and Plan 62-year-old male presenting with dyspnea and left upper quadrant abdominal pain found to have generalized lymphadenopathy, left pleural effusion and an extensive left upper quadrant abdominal mass. Patient had some symptomatic relief of his dyspnea after drainage of a 1 L trip colored pleural fluid. Cytology is pending. These findings are most concerning for an advanced malignancy either metastatic or primary lymphoma. I do not believe that fluid cytology alone will provide sufficient information and a tissue biopsy is advised. I discussed his case with and will arrange for a CT-guided abdominal mass core biopsy. If that is insufficient and open biopsy of the left supraclavicular mass can be contemplated. I met with the patient and significant lady friend and her daughter. Impression and plan discussed. Following that biopsy he can be discharged and I will follow him in the office tentatively on October 30 if pathology is ready. Further workup depends on pathology. Medications: Prescriptions This Visit Medication Instructions Recorded Atorvastatin Calcium [Lipitor] 20 mg PO QHS 10/23/17 traMADol [Ultram (G)] 50 mg PO Q4H PRN PRN 10/23/17 Medications Added to Medication List This Visit Category Date Time Status Atorvastatin Calcium [Lipitor] Med 10/24/17 22:00 Active 20 mg PO QHS Enoxaparin [Lovenox] Med 10/24/17 10:00 Active 40 mg SC DAILY@1000 Ensure Enlive Med 10/24/17 14:00 Active 120 ml PO 4X/DAY Primary Care Provider: Comfort Johnson MD Referring Provider:
[2017-10-24] MEDS: Atorvastatin Calcium 20 MG Tablet PO (20:29)
[2017-10-25] VITALS (8 sets, daily range): BP systolic 117–150; BP diastolic 71–91; PULSE 104–126; RESP 14–19; TEMP 36.4–36.7; O2SAT 92–95
--- NOTE | 2017-10-25 | IMM_PTH ---
PATIENT: ALEXANDRIA MOSES LOC: MS3 U#:[id number] AGE/SX: 62/M [place] [facility] [place]: Dr. Fabian Lema MD : 1955 BED: 1 DIS: 10/25/2017 SPEC #: [id number] RECD: 10/26/17 10:16 STATUS: PITA REQ #: [id number] DALIA: 10/25/17 00:[address]: Fabian Lema DEPT: IMMUNOHISTOCHEMISTRY RECD BY: Isabella Dao ENTERED: 10/26/17 10:19 SP TYPE: IMMUNO OTHR DR: MD Dr. Ramos Ferguson MD Dr. Joseph Agyepong, MD Dr. Mansour Isckarus, MD Tissues: Abdomen, NOS Procedures: BCL-2 (add) BCL-6 (add) CD10 (add) CD20 (add) CD23 (add) CD3 (add) CD30 (add) CD43 (add) CD45 (add) CD5 (add) CD79A (add) CK8 (add) CYCLIN (add) KI-67 (add) MUM1 (add) C-MYC (add) Pankeratin (initial) PHYSICIAN & [place] [id number] SPECIMEN INFORMATION: Tissue Source: Retroperitoneal left upper abdomen mass Clinical Info: Left abdominal mass Specimen Number: [id number] CPT code: 09668, 35163 x16 METHODOLOGY: Deparaffinized sections of prefer/formalin-fixed tissue or PAP/DQ stained slides are incubated with monoclonal/polyclonal antibodies/oligonucleotide probes. Localization is made via biotin free immunoperoxidase method. Appropriate controls are performed and reacted as expected. Results on target cell population are indicated in the following table: RESULTS: ANTIBODY / CLONE RESULT AE1-3 (AE1/AE3/PCK26) negative CK8 (89hbhkG51) negative CD3 (PS1) negative CD5 (SP10) negative CD20 (L26) positive CD43 (L60) negative CD45 (RP2/18) positive CD79a (11E3) positive CD10 (56C6) negative CD23 (1B12) negative CD30 (Fabricio-H2) negative BCL-2 (bcl-2/100/D5) positive BCL-6 (VB472L/A8) positive Cyclin D1/BCL-1 (SP4) negative MUM1 (MRQ-43) positive C-MYC (Y69) positive, <50% Ki-67 (30-9) positive, high These tests were developed and their performance characteristics determined by [facility]. They may not have been cleared or approved by the U.S. Food and Drug Administration. The FDA has determined that such clearance or approval is not necessary. 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 SJ:fidelia 10/29/17 Case has been reviewed in consultation with Dr. Maurer who concurs with the above diagnosis. IDC:AM
[2017-10-25] MEDS: oxyCODONE 5 MG Tablet PO (02:31)
--- NOTE | 2017-10-25 05:55 | CT_ITS ---
PROCEDURE: CT GUIDED biopsy of the retroperitoneal mass. DATE: October 25, 2017. INDICATION: Male, 62 years old. Retroperitoneal lymphadenopathy. PHYSICIAN: Ramos Gore M.D. RADIATION DOSAGE (If Supplied By Facility): CTDIvol = ( 15 ) mGy, DLP = ( 365.31 ) mGycm. Individualized dose optimization techniques were utilized. PROCEDURE: The risks, benefits, and alternatives to the procedure were explained to the patient. The specific risk of hemorrhage requiring further treatment or intervention was detailed and accepted. Follow-up instructions were discussed with the patient as well. Written informed consent was obtained. The patient was brought into the CT suite and placed in the prone position. . An appropriate entry site was identified. The overlying skin was prepped and draped in the usual sterile fashion. 1% lidocaine was administered subcutaneously for local anesthesia. Conscious sedation protocol was performed. The patient received 2 mg of Versed and 50 mcg of fentanyl intravenously. The patient was monitored independently by the department nurse. Conscious sedation was started at 8:55 AM and terminated at 9:[address] guidance, a total of 6 passes were performed of the retroperitoneal mass utilizing an 18-gauge core biopsy needle. The specimens were then placed in the appropriate fluid in transported to the laboratory for analysis. Hemostasis was obtained. The patient tolerated the procedure well without immediate complications. CT/Biopsy/Inj or Needle Placement IMPRESSION: Successful CT guided biopsy of the retroperitoneal mass, as described above. Conscious sedation protocol was followed. Electronically Signed: Ramos Gore MD at 10:02 EDT Tel [phone], Service support ,
[2017-10-25 06:52] LABS: Anion Gap 9 (5-15); BUN 27 mg/dL (7-18); BUN/Creat Ratio 15.3 RATIO (10-20); Calcium,Total 8.9 mg/dL (8.5-10.1); Chloride 99 mmol/L (98-107); Creatinine, Serum 1.76 mg/dL (0.70-1.30); EST Glomerular Filtration Rate 42 mL/min (>60); Est Glom Filt Rate - Afr Amer 51 mL/min (>60); Estimated Creatinine Clearance 39.19 ml/min; Glucose 89 mg/dL (74-106); Potassium 4.3 mmol/L (3.5-5.1); Sodium Level 136 mmol/L (136-145)
--- NOTE | 2017-10-25 09:10 | ASPIGT_PTH ---
PATIENT: ALEXANDRIA MOSES LOC: MS3 U#:[id number] AGE/SX: 62/M ROOM: [facility] – [place] RE10/23/[address]: Dr. Fabian Lema MD : 1955 BED: 1 DIS: 10/25/2017 SPEC #: [id number] RECD: 10/25/17 11:34 STATUS: PITA REQ #: [id number] DALIA: 10/25/17 09:[address]: Fabian Lema DEPT: SURGICAL PATHOLOGY RECD BY: Uday Romero ENTERED: 10/25/17 11:34 SP TYPE: ASP RAD OTHR DR: MD Dr. Ramos Ferguson MD Dr. Joseph Agyepong, MD Dr. Mansour Isckarus, MD Tissues: Abdomen, NOS Procedures: FNA Specimen Adequacy Special Stain Group II Surgery Specimen Level IV Imprint (control) HEADER OPERATION: CT-guided left abdomen mass biopsy PRE-OP DIAGNOSIS: Left abdominal mass TISSUE SUBMITTED: Retroperitoneal/left upper abdomen mass 18g core x6 MICROSCOPIC DIAGNOSIS Retroperitoneal/left upper abdominal mass, CT-guided core biopsy: Consistent with involvement by non-Hodgkin diffuse large B-cell lymphoma, non germinal center cell origin. Flow cytometry studies from [facility] shows hypocellular specimen, atypical lambda positive population with equivocal CD10 expression is present. See comment. SJ:fidelia 10/26/17 COMMENT The specimen is evaluated at the time of CT-guided biopsy by Dr. Parrish. Immediate Evaluation = Malignant cells present. Differential diagnosis includes lymphoma versus small cell carcinoma. Immunohistochemistry ([id number]) supports the above diagnosis. Also make reference to previous cytology ([id number]), thoracentesis fluid with diagnosis of consistent with involvement by non-Hodgkin B-cell lymphoma. Case has been reviewed in consultation with Dr. Maurer who concurs with the above diagnosis. IDC:AM MICROSCOPIC DESCRIPTION Slides are reviewed. GROSS DESCRIPTION Received in fixative is one container labeled with the patient's name and designated retroperitoneal/left abdominal mass. The specimen consists of multiple elongated fragments of peguero soft tissue that in aggregate measure 2 x 0.1 x 0.1 cm. The specimen is totally submitted in one cassette. One core is submitted for flow cytometry studies. One touch imprint is prepared at the time of core biopsy. / SJ:fidelia 10/25/17 TC:0 CPT: 73606, 49442
--- NOTE | 2017-10-25 09:15 | DCINST_ITS ---
- Discharge Diagnoses Current Active Problems: Current Active and Chronic Problems (Last Updated 10/24/17 @ 16:29 by Rosie Correa) Abdominal mass (Acute) Lymphadenopathy (Acute) Pleural effusion, left (Acute) Allergies/Adverse Reactions: Allergies No Known Allergies Allergy (Verified 10/23/17 20:50) Medications to take at Discharge Atorvastatin Calcium [Lipitor] 20 mg PO QHS 10/23/17 traMADol [Ultram (G)] 50 mg PO Q4H PRN PRN 10/23/17 Primary Care Physician: Comfort Johnson MD [Primary Care Provider] - Test Results: Test results from this visit will be discussed in further detail at your follow- up appointment, if applicable.
[2017-10-25] MEDS: Enoxaparin 40 MG/0.4 ML Syringe SC (11:29)
--- NOTE | 2017-10-25 11:32 | DCINST_ITS ---
- Discharge Diagnoses Current Active Problems: Current Active and Chronic Problems (Last Updated 10/24/17 @ 16:29 by Rosie Correa) Abdominal mass (Acute) Lymphadenopathy (Acute) Pleural effusion, left (Acute) You will use the following diet at home:: Regular Your food should be the consistency of: Regular Discharge Activity: Return to Normal Activity Allergies/Adverse Reactions: Allergies No Known Allergies Allergy (Verified 10/23/17 20:50) Medications to take at Discharge Atorvastatin Calcium [Lipitor] 20 mg PO QHS 10/23/17 traMADol [Ultram] 50 mg PO Q4H PRN PRN 10/23/17 Ensure Enlive 120 ml PO 4X/DAY #0 liquid 10/25/17 Primary Care Physician: Comfort Johnson MD [Primary Care Provider] - Test Results: Test results from this visit will be discussed in further detail at your follow- up appointment, if applicable. Please Follow Up With: Dipika Vega MD When: on 10/29/14 for biopsy results Proposed Discharge Date: 10/25/17
[2017-10-25 11:45] LABS: Pathologist Comment/Body Fluid Reviewed
--- NOTE | 2017-10-25 12:00 | CASEMGMT ---
Social Work Note RN REX Astorga updated this worker that pt and his would like to complete Advanced Directives. SW completed HCPOA and LV with pt and his . This worker and GIAN Astorga witnessed the document. Phyllis Mcleod SAFE EXPERT, GRAPHIC MANAGER
--- NOTE | 2017-10-25 12:15 | PCM.DC.SUM ---
Discharge Date and Diagnosis - Problem List Patient Problems: Active and Suspected Problems (Last Updated 10/24/17 @ 16:29 by Rosie Correa) Abdominal mass (Acute) Lymphadenopathy (Acute) Pleural effusion, left (Acute) Date of Admission: 10/23/17 Date of Discharge: 10/25/17 - Primary Discharge Diagnosis Active and Suspected Problems (Last Updated 10/24/17 @ 16:29 by Rosie Correa) Abdominal mass (Acute) Lymphadenopathy (Acute) Pleural effusion, left (Acute) Hospital Course and Treatment Imaging Results: Clinical Impression(s) from Imaging Studies Chest X-Ray 10/23/17 21:40 IMPRESSION: Large left pleural effusion. Electronically Signed: Cedrick Mahoney MD at 21:50 EDT , Service support , Thoracentesis Ultrasound 10/24/17 06:00 IMPRESSION: Ultrasound-guided left thoracentesis. Electronically Signed: Ramos Gore MD at 10:46 EDT Tel [phone], Service support , Abdomen/Pelvis CT 10/24/17 08:17 IMPRESSION: Extensive masses in the abdomen and pelvis as described. The differential diagnoses should include diffuse extensive lymphadenopathy or sarcoma. The left kidney is involved within this mass. A primary left renal cell carcinoma is less likely. Left pleural effusion with underlying atelectasis. Electronically Signed: Ramos Gore MD at 10:27 EDT Tel [phone], Service support , Chest CT 10/24/17 08:17 IMPRESSION: Large left pleural effusion with underlying atelectasis and/or infiltration. Mild increased markings in the left upper lobe. Upper abdominal masses as described. Electronically Signed: Ramos Gore MD at 10:29 EDT Tel [phone], Service support , Chest X-Ray 10/24/17 10:05 IMPRESSION: Status post left thoracentesis. Small residual left pleural effusion with underlying infiltration and/or atelectasis. Electronically Signed: Ramos Gore MD at 11:07 EDT Tel [phone], Service support , Biopsy CT 10/25/17 05:55 IMPRESSION: Successful CT guided biopsy of the retroperitoneal mass, as described above. Conscious sedation protocol was followed. Electronically Signed: Ramos Gore MD at 10:02 EDT Tel [phone], Service support , Summary of Care Provided: Patient is a 62-year-old gentleman who presents with abdominal pain CT obtained as outpatient apparently demonstrated 16 x 20 x [address] of the chest also demonstrated large left-sided pleural effusion with lymphadenopathy and nodular density involving the lungs metastatic disease could not be ruled out subsequently admitted to regular nursing floor for further management 1. Abdominal mass patient to be malignant. CT of the abdomen, chest and pelvis ordered results as above. Based on the findings consultation was placed to oncology patient was seen by Dr. Vega who recommended for patient undergo CT-guided biopsy which was performed on 10/25/2017. Plan is for patient to undergo subsequent evaluation as outpatient with Dr. Vega with oncology 2. Large sided left-sided pleural effusion patient underwent ultrasound-guided thoracocentesis on 10/24/2017 3. Suspected metastatic lung disease consult placed to pulmonary medicine 4. Dyslipidemia-patient is on statin therapy, continued at home dose 5. DVT prophylaxis SC enoxaparin Discharge Diet: No Restrictions Discharge Activity: Return to Normal Activity Home Medications: Medications to take at Discharge Atorvastatin Calcium [Lipitor] 20 mg PO QHS 10/23/17 traMADol [Ultram] 50 mg PO Q4H PRN PRN 10/23/17 Ensure Enlive 120 ml PO 4X/DAY #0 liquid 10/25/17 Primary Care Physician: Comfort Johnson MD [Primary Care Provider] - Please Follow Up With: Dipika Vega MD When: on 10/29/14 for biopsy results Disposition: Home Minutes spent on discharge:: 35 Patient Condition:: Fair Medical Necessity - Tobacco Use Smoking Status: Former smoker Tobacco Use: Non-smoker Meaningful Use Info Meaningful Use Diagnoses (Choose all that apply): None applicable Code Visit Inpatient E&M: 89669 Disch Hosp
--- NOTE | 2017-10-25 12:28 | DS.PCM_ITS ---
Discharge Date and Diagnosis - Problem List Patient Problems: Active and Suspected Problems (Last Updated 10/24/17 @ 16:29 by Rosie Correa) Abdominal mass (Acute) Lymphadenopathy (Acute) Pleural effusion, left (Acute) Date of Admission: 10/23/17 Date of Discharge: 10/25/17 - Primary Discharge Diagnosis Active and Suspected Problems (Last Updated 10/24/17 @ 16:29 by Rosie Correa) Abdominal mass (Acute) Lymphadenopathy (Acute) Pleural effusion, left (Acute) Hospital Course and Treatment Imaging Results: Clinical Impression(s) from Imaging Studies Chest X-Ray 10/23/17 21:40 IMPRESSION: Large left pleural effusion. Electronically Signed: Cedrick Mahoney MD at 21:50 EDT , Service support , Thoracentesis Ultrasound 10/24/17 06:00 IMPRESSION: Ultrasound-guided left thoracentesis. Electronically Signed: Ramos Gore MD at 10:46 EDT Tel [phone], Service support , Abdomen/Pelvis CT 10/24/17 08:17 IMPRESSION: Extensive masses in the abdomen and pelvis as described. The differential diagnoses should include diffuse extensive lymphadenopathy or sarcoma. The left kidney is involved within this mass. A primary left renal cell carcinoma is less likely. Left pleural effusion with underlying atelectasis. Electronically Signed: Ramos Gore MD at 10:27 EDT Tel [phone], Service support , Chest CT 10/24/17 08:17 IMPRESSION: Large left pleural effusion with underlying atelectasis and/or infiltration. Mild increased markings in the left upper lobe. Upper abdominal masses as described. Electronically Signed: Ramos Gore MD at 10:29 EDT Tel [phone], Service support , Chest X-Ray 10/24/17 10:05 IMPRESSION: Status post left thoracentesis. Small residual left pleural effusion with underlying infiltration and/or atelectasis. Electronically Signed: Ramos Gore MD at 11:07 EDT Tel [phone], Service support , Biopsy CT 10/25/17 05:55 IMPRESSION: Successful CT guided biopsy of the retroperitoneal mass, as described above. Conscious sedation protocol was followed. Electronically Signed: Ramos Gore MD at 10:02 EDT Tel [phone], Service support , Summary of Care Provided: Patient is a 62-year-old gentleman who presents with abdominal pain CT obtained as outpatient apparently demonstrated 16 x 20 x [address] of the chest also demonstrated large left-sided pleural effusion with lymphadenopathy and nodular density involving the lungs metastatic disease could not be ruled out subsequently admitted to regular nursing floor for further management 1. Abdominal mass patient to be malignant. CT of the abdomen, chest and pelvis ordered results as above. Based on the findings consultation was placed to oncology patient was seen by Dr. Vega who recommended for patient undergo CT -guided biopsy which was performed on 10/25/2017. Plan is for patient to undergo subsequent evaluation as outpatient with Dr. Vega with oncology 2. Large sided left-sided pleural effusion patient underwent ultrasound-guided thoracocentesis on 10/24/2017 3. Suspected metastatic lung disease consult placed to pulmonary medicine 4. Dyslipidemia-patient is on statin therapy, continued at home dose 5. DVT prophylaxis SC enoxaparin Discharge Diet: No Restrictions Discharge Activity: Return to Normal Activity Home Medications: Medications to take at Discharge Atorvastatin Calcium [Lipitor] 20 mg PO QHS 10/23/17 traMADol [Ultram] 50 mg PO Q4H PRN PRN 10/23/17 Ensure Enlive 120 ml PO 4X/DAY #0 liquid 10/25/17 Primary Care Physician: Comfort Johnson MD [Primary Care Provider] - Please Follow Up With: Dipika Vega MD When: on 10/29/14 for biopsy results Disposition: Home Minutes spent on discharge:: 35 Patient Condition:: Fair Medical Necessity - Tobacco Use Smoking Status: Former smoker Tobacco Use: Non-smoker Meaningful Use Info Meaningful Use Diagnoses (Choose all that apply): None applicable Code Visit Inpatient E&M: 73338 Disch Hosp
== END 2017-10-25 12:42 | disposition home or self-care (01) | DRG 392 ==
LOC: ED 22:42 → MS3 23:49
PROVIDERS: Admitting Provider Hospitalist; Emergency Provider Emergency Medicine; Family Provider Internal Medicine; PCP Internal Medicine; Visit Provider Internal Medicine
DX: R19.00 Intra-abdominal and pelvic swelling, mass and lump, unspecified site (principal); J90 Pleural effusion, not elsewhere classified; Z68.1 Body mass index [BMI] 19.9 or less, adult; E78.5 Hyperlipidemia, unspecified; R63.4 Abnormal weight loss; R59.1 Generalized enlarged lymph nodes; Z87.891 Personal history of nicotine dependence
CPT/HCPCS: 32555; 36415; 71045; 71046; 71260; 74177; 77012; 80048; 80053; 82945; 83615; 85025; 85027; 85610; 88108; 88172; 88305; 88313; 88341; 88342; 89050; 97802; 99156; 99157; 99283; 99406; J7040; Q9967; A4216; J2405

== ENCOUNTER → 2017-11-06 12:35 | Outpatient (CLI) | payer OTHER, SELFPAY ==
--- NOTE | 2017-11-06 12:37 | ECHOD_ITS ---
Reason For Study: PRE CHEMO Procedure This was a 2D Doppler, Color Flow transthoracic echocardiogram. The exam was of poor technical quality due to diminished acoustic windows. The study was technically difficult. Exam performed in department. Left Ventricle Normal LV size. Left ventricular systolic function is normal. The estimated ejection fraction is 70 %. Normal diastology for age. No regional wall motion abnormalities noted. Right Ventricle Normal RV size. Normal systolic function. Atria Normal left atrium. Normal right atrium. No doppler evidence for ASD. Mitral Valve There is no mitral annular calcification. Normal mitral valve. Tricuspid Valve Normal tricuspid valve. Trivial tricuspid valve insufficiency. Right ventricular systolic pressure estimated to be 30 mmHg. Aortic Valve Trisinus/trileaflet aortic valve. Mild diffuse aortic valve thickening. Mild focal aortic valve calcification. Pulmonic Valve The pulmonic valve is not well visualized. Great Vessels Normal sized aortic root. Pericardium/Pleural No pericardial effusion. Echolucency c/w a pleural effusion. MMode/2D Measurements & Calculations LVIDd: 3.8 cm IVSd: 0.93 cm Ao root diam: 3.5 cm LVIDs: 2.6 cm LVPWd: 0.89 cm LA dimension: 2.5 cm RVDd: 2.6 cm FS: 31.8 % LAV(MOD-bp): 25.9 ml LVAd ap4: 24.3 cm2 SV(MOD-sp4): 34.6 ml LAV(MOD-bp) Indexed: 13.9 ml/m2 EDV(MOD-sp4): 61.4 ml LAV(MOD-sp2): 29.7 ml EDV(sp4-el): 66.0 ml LAV(MOD-sp4): 17.5 ml LVAs ap4: 14.3 cm2 ESV(MOD-sp4): 26.8 ml ESV(sp4-el): 28.0 ml EF(MOD-sp4): 56.3 % EF(sp4-el): 57.5 % SV(sp4-el): 38.0 ml LA A4 area: 9.0 cm2 RA A4 area: 10.9 cm2 Doppler Measurements & Calculations MV E max tom: 57.3 cm/sec Lat Peak E' Tom: 12.8 cm/sec Med Peak E' Tom: 6.9 cm/sec MV A max tom: 83.5 cm/sec E/E' lat: 4.5 E/E' med: 8.3 MV E/A: 0.69 Ao V2 max: 124.0 cm/sec LV V1 max: 123.7 cm/sec PA V2 max: 85.1 cm/sec Ao max P.2 mmHg LV V1 max P.1 mmHg TR max tom: 257.6 cm/sec TR max P.6 mmHg Interpretation Summary The study was technically difficult. Left ventricular systolic function is normal. The estimated ejection fraction is 70 %. Trivial tricuspid valve insufficiency. Mild diffuse aortic valve thickening. Mild focal aortic valve calcification. Echolucency c/w a pleural effusion. Right ventricular systolic pressure estimated to be 30 mmHg. Normal diastology for age. Ordering Physician: Dipika Vega Referring Physician: YARA PAREKH Performed By: Brionna Allison RDCS
== END ==
PROVIDERS: Family Provider Internal Medicine; PCP Internal Medicine; Visit Provider Internal Medicine Hematology & Oncology
DX: Z01.810 Encounter for preprocedural cardiovascular examination (principal)
CPT/HCPCS: 93306

== ENCOUNTER → 2017-11-09 07:52 | Outpatient (CLI) | payer OTHER, SELFPAY ==
[2017-11-09] VITALS (10 sets, daily range): BP systolic 98–145; BP diastolic 47–83; PULSE 92–113; RESP 16–19; TEMP 36.7; O2SAT 92–96; BMI 20.9
--- NOTE | 2017-11-09 | BMB_PTH ---
PATIENT: ALEXANDRIA MOSES LOC: [place] U#:[id number] AGE/SX: 69/M ROOM: RE11/09/[address]: Dr. Dipika Vega MD : 1955 BED: DIS: SPEC #: [id number] RECD: 11/09/17 10:08 STATUS: PITA REJanice #: [id number] DALIA: 11/09/17 00:[address]: Dipika Vega DEPT: BONE MARROW RECD BY: Uday Romero ENTERED: 11/09/17 10:08 SP TYPE: BMB OTHR DR: Dr. Comfort Johnson MD Tissues: A - Bone marrow, NOS B - Bone marrow, NOS C - Bone marrow, NOS Procedures: PERIPH Decalcification bone/plaque Bone Marrow Aspiration Special Stain Group II PAS Stain (control) Retic (control) Iron Stain (control) Hernandez Stain (control) Bone Marrow Core Biopsy Iron Stain Bone Marrow HEADER OPERATION: Bone marrow biopsy and aspiration PRE-OP DIAGNOSIS: Diffuse large B-cell lymphoma TISSUE SUBMITTED: A - Core, B - Clot, C - Smears, and send outs (flow, cytogenetics) BONE MARROW DIAGNOSIS Bone marrow core, clot and aspirate smears: Mildly hypocellular marrow with trilineage hematopoiesis. Negative for involvement by lymphoma, granuloma or malignancy. Peripheral blood ? neutrophilic leukocytosis, normocytic anemia and thrombocytosis. Flow cytometry study from [facility] shows no evidence of B or T-cell lymphoproliferative disorder. The complete report is viewable in patient?s EMR. SJ:rg 11/12/17 COMMENT Please make reference to previous specimen ([id number]) retroperitoneal/left upper abdominal mass, CTguided core biopsy with diagnosis of consistent with involvement by non-Hodgkin diffuse large B-cell lymphoma, non-germinal center cell origin and cytology ([id number]) thoracentesis fluid with diagnosis of atypical lymphocytes present consistent with involvement by non-Hodgkin B-cell lymphoma. BONE MARROW STUDY Slides are reviewed. CBC DATE: 11/09/17 WBC 11.4; RBC 3.86; HGB 9.4; HCT 32.2; MCV 83.4; RDW 14.6; PLTS [id number] SEGS 71.2%; LYMPHS 17.8%; MONOS 6.3%; EOS 3.6%; BASOS 0.9% PERIPHERAL SMEAR: Submitted. RBC: Normocytic anemia. WBC: Neutrophilic leukocytosis. The WBC count is compatible to as reported above. PLTS: Increased. BONE MARROW ASPIRATE DIFFERENTIAL: 200 cell count. Blasts % (normal 0-2): 0 Promyelocytes % (normal 1-5): 0 Myelocytes and metamyelocytes % (normal 17-41): 21 Bands and Segs % (normal 15-32): 38 Eos % (normal 1-6): 7 Basos % (normal 0-1): 0 Monocytes % (normal 0-4): 1 Erythroid Precursors % (normal 17-35): 24 Lymphocytes % (normal 7-13): 9 Plasma Cells % (normal 0-2): 0 ASPIRATE FINDINGS: Site: Not specified Paucispicular, Cellular M/E ratio: 2.75 (Normal 1.5-4.0) Megakaryocytes: Present and normal morphology. Erythropoiesis: Normoblastic. Binucleated erythroid cells are noted. Granulopoiesis: Progressive and unremarkable. CORE BIOPSY FINDINGS: Site: Not specified Adequacy: Adequate Cellularity: 20% M/E ratio: Within normal limits. Megakaryocytes: Present and adequate in number. Bony trabeculae: Unremarkable. Granulomas: Absent. Lymphoid aggregate: Absent. Atypical infiltrate: Absent. ASPIRATE CLOT FINDINGS: Site: Not specified Comment: The specimen entirely consists of peripheral blood. SPECIAL STAINS WITH MATCHED CONTROLS: Iron: 4+, atypical ring sideroblasts are not seen. Reticulin: No significant increase of reticulin fibers is noted. PAS: Highlights myeloid cells and megakaryocytes. BONE MARROW GROSS A - Received is a container labeled with the patient's name and designated bone marrow biopsy. The specimen consists of two elongated pieces of bone measuring 0.7 and 1.5 cm in length and 0.2 cm in diameter. The specimen is totally submitted in one cassette after decalcification. B - Received labeled with the patient's name and designated bone marrow biopsy is a specimen that consists of approximately 7 cc of bloody fluid that on filtration yields multiple minute fragments of blood clots measuring in aggregate 1 x 0.1 x <0.1 cm. The specimen is totally submitted in one cassette. C - Also received are 26 unstained and 1 peripheral stained slides. The unstained slides are submitted for appropriate staining. Also received are 3 green top tubes which are sent to our reference lab for flow and cytogenetics. / SJ:rg 11/09/17 TC:5 CPT: 51797, 23547, 24060 x2, 13513 x3, 52463 ADDENDUM ADDENDUM ADDENDUM ADDENDUM ADDENDUM ADDENDUM ADDENDUM ADDENDUM ADDENDUM 11/26/2017 12:16 ADDENDUM 11/26/2017 12:16 ADDENDUM 11/26/2017 12:16 ADDENDUM 11/26/2017 12:16 ADDENDUM 11/26/2017 12:16 CYTOGENETICS REPORT FROM [facility] INTERPRETATION AND COMMENTS: Karyotype: 46,XY[20] A normal male karyotype was observed in twenty metaphases analyzed. Please see complete report in e-chart or EMR for further details
--- NOTE | 2017-11-09 08:45 | CT_ITS ---
STUDY: CT SCAN GUIDED BONE MARROW BIOPSY OF THE RIGHT ILIAC BONE. REASON FOR EXAM: Male, 62 years old. The patient has a history of lymphoma. RADIATION DOSAGE (If Supplied By Facility): CTDIvol = ( 15 ) mGy, DLP = ( 521.3 ) mGycm. Individualized dose optimization techniques were used for this CT.? TECHNIQUE: Multiple axial tomographic images of the pelvis was obtained. The patient was in the left lateral decubitus position. A biopsy site was located in the anterior aspect of the right iliac bone. The overlying skin was prepped and draped in usual sterile fashion. Conscious sedation was performed. The patient received 2 mg of Versed and 50 mcg of fentanyl. Conscious sedation was started at 8:55 AM and terminated at 9:23 AM. The the patient was monitored by the department nurse. Following local anesthetic application, an 11-gauge bone marrow biopsy needle was advanced to the iliac bone. 20 cc of follow-up bone marrow was aspirated. Following this, a bone marrow biopsy was obtained. The patient tolerated the procedure well. CT/Biopsy/Inj or Needle Placement IMPRESSION: Successful CT guided bone marrow biopsy of the right iliac bone as described. The patient tolerated the procedure well. Electronically Signed: Ramos Gore MD at 9:59 EDT Tel [phone], Service support ,
[2017-11-09 09:52] LABS: Bone Marrow Aspiraton SEE PATHOLOGY REPORT
[2017-11-09 10:07] LABS: Absolute Lymphocyte Count 2.02 X10^3/ul (0.83-4.51); Absolute Neutrophil Count 8.1 X10^3/uL (2.0-7.7); Basophil% 0.9 % (0-1); Eosinophil# 0.41 X10^3/uL; Eosinophils% 3.6 % (0-5); Hematocrit 32.2 % (40-54); Hemoglobin 9.4 g/dl (13.0-16.5); Lymphocyte # 2.02 X10^3/ul (4.0); Lymphocyte % 17.8 % (19-41); Mean Corp Hgb Conc 29.2 g/gl (32-36); Mean Corpuscular Hgb 24.4 pg (27.0-32.0); Mean Corpuscular Volume 83.4 fL (80-94); Mean Platelet Vol. 8.1 fl (6.2-12.0); Monocyte# 0.72 X10^3/uL; Monocyte% 6.3 % (0-10); Neutrophil # 8.11 X10^3/uL (2.7-7.7); Neutrophil % 71.2 % (47-70); Platelet Count 578 K/mm3 (150-450); RBC Distribution Width CV 14.6 % (11.6-14.6); RBC Distribution Width SD 43.8 fl (35.1-43.9); Red Blood Count 3.86 M/mm3 (4.6-6.2); White Blood Count 11.4 K/mm3 (4.4-11.0)
[2017-11-09 10:44] LABS: Differential Indicated SCAN CRITERIA MET; POSITIVE COUNT NO; POSITIVE DIFFERENTIAL NO; POSITIVE MORPHOLOGY YES
[2017-11-09 10:59] LABS: Pathologist Review May foll
== END ==
PROVIDERS: Family Provider Internal Medicine; PCP Internal Medicine; Visit Provider Internal Medicine Hematology & Oncology
DX: C83.30 Diffuse large B-cell lymphoma, unspecified site (principal); R19.00 Intra-abdominal and pelvic swelling, mass and lump, unspecified site
CPT/HCPCS: 38221; 77012; 85025; 88305; 88311; 88313; 99156; 99157; J7040; A4216

== ENCOUNTER 2017-11-13 10:01 | Day surgery (SDC) | payer OTHER, SELFPAY ==
[2017-11-13 10:23] VITALS: BP 138/81; PULSE 87; RESP 14; TEMP 36.2; O2SAT 98; BMI 22.1
--- NOTE | 2017-11-13 11:43 | PCM.OPRPT ---
Problem List (1) DLBCL (diffuse large B cell lymphoma) Status: Acute Qualifiers: Lymphoma site: unspecified region Qualified Code(s): C83.30 - Diffuse large B-cell lymphoma, unspecified site Report of Operation Date of Procedure: 11/13/17 Pre-Operative Diagnosis: c83.30 diffuse B-cell lymphoma Post-Operative Diagnosis: Same Surgery/Procedure Performed:: Placement of a right IJ PowerPort Type of Anesthesia:: MAC Anesthesiologist: Bradford Ridley Estimated Blood Loss (mL): <25 cc Description of Procedure: Patient was brought into the operating room placed in the supine position. Under excellent MAC anesthetic the right internal jugular vein was ultrasounded and properly marked and draped in the usual sterile fashion. Local was injected into the neck. Seldinger's technique was used to gain access to the right internal jugular vein without difficulty. Guidewire was placed over the needle the needle was removed fluoroscopy was used to confirm proper placement of the wire. I injected local under the chest. Incision was made electrocautery was used to create a pocket for the port. Incision was made over the guidewire. Dilator was placed over the guidewire and removed the dilator and sheath were placed over the guidewire and the dilator and guidewire were removed. Single lumen catheter was placed over the sheath the sheath was removed. Fluoroscopy was used to confirm proper placement in the superior vena cava. I tunneled from the pocket created over the collarbone into the neck and brought the catheter down. I cut the catheter to length placed locking hub on the catheter the port onto the catheter and secured the 2 with the locking hub. It flushed and irrigated well and was flushed with 5 cc of hep flush. I sutured it into the pocket created with 2 sutures of 2-0 Prolene. Skin incisions were brought together with deep dermal stitches of 3-0 Vicryl. I gain access to the port flushes again properly Dermabond was applied sterile dressings were applied and the patient tolerated the procedure well. - Admit VTE Documentation VTE Present on Admission: No VTE Mechan Device Prophylaxis: SCD's VTE Pharm Prophylaxis ordered?: No Reason prophylaxis not ordered:: Treatment Not Indicated
--- NOTE | 2017-11-13 11:46 | DCINST_ITS ---
Discharge Diet: No Restrictions - Pain medication may cause nausea. You should typically eat light foods as you take your pain medication. Discharge Activity: May Shower - with the bandage in place 1-2 days after surgery. DO NOT SHOWER WHEN YOUR PORT IS ACCESSED. Additional Activity Instructions:: May not drive, work with heavy equipment, or sign legal documents for [address] if you are no longer taking narcotic pain medications. You may drive when you are no longer taking pain medications. Additional Dressing/Incision Instructions:: Leave the bandage on for 2-3 days. When you remove the bandage, leave the steri-strips intact until they fall off. Allergies/Adverse Reactions: Allergies No Known Allergies Allergy (Verified 11/12/17 09:49) Medications to take at Discharge Atorvastatin Calcium [Lipitor] 20 mg PO QHS 10/23/17 Prednisone [Deltasone] 100 mg PO DAILY 5 Days #25 tab 11/02/17 oxycodone-acetaminophen 5 mg-325 mg tablet 1 tab PO Q6H PRN tab 11/07/17 Allopurinol [Zyloprim] 300 mg PO DAILY 11/12/17 Docusate Sodium [Stool Softener] 100 mg PO BID 11/12/17 Ensure Enlive 120 ml PO PRN PRN 11/12/17 Ranitidine [Zantac] 150 mg PO DAILY 11/12/17 Oxycodone HCl/Acetaminophen [Percocet 5/325] 1 - 2 tab PO Q4H PRN PRN 4 Days # 30 tab 11/13/17 The following prescriptions were given: Oxycodone HCl/Acetaminophen [Percocet 5/325] 1 - 2 tab PO Q4H PRN PRN 4 Days # 30 tab PRN Reason: Pain Primary Care Physician: Comfort Johnson MD [Primary Care Provider] - Test Results: Test results from this visit will be discussed in further detail at your follow- up appointment, if applicable. Please Follow Up With: Jermain Vitale MD - [phone] When: Please plan to follow up in 7 days in the office.
[2017-11-13] MEDS: Cefazolin 2 GM in 0.9% Normal Saline 100 ML IV (11:56)
[2017-11-13] MEDS: Bupivacaine Mpf 0.5% 30 ML VIAL (12:02)
[2017-11-13 12:32] VITALS: BP 125/77; BP 138/81; PULSE 87; RESP 16; TEMP 36.4; O2SAT 97
--- NOTE | 2017-11-13 12:38 | RAD_ITS ---
STUDY: X-RAY CHEST REASON FOR EXAM: Male, 62 years old. port placement TECHNIQUE: Single AP portable view of the chest. COMPARISON: October 24, 2017 FINDINGS: There is a new right central venous line with the distal tip in the lower superior vena cava. Heart is partially obscured. There is a larger left pleural effusion. There is left lung atelectasis/consolidation. No pneumothorax is demonstrated. Normal visualized pulmonary arteries. Normal visualized aortic arch and descending thoracic aorta. Normal visualized thoracic spine. Normal visualized ribs, clavicles, and shoulders. There is no demonstrated abnormality of the visualized soft tissue structures of the upper abdomen. RAD/Chest 1 View (Portable) IMPRESSION: There is a new right central venous line with the distal tip in the lower superior vena cava. There is a larger left pleural effusion. Electronically Signed: Josselyn Espinal MD at 13:20 EDT , Service support ,
[2017-11-13 12:40] VITALS: BP 117/70; BP 138/81; PULSE 92; RESP 16; O2SAT 97
[2017-11-13 12:45] VITALS: BP 122/72; BP 138/81; PULSE 93; RESP 16; O2SAT 97
[2017-11-13 12:46] VITALS: BP 113/75; BP 138/81; PULSE 91; RESP 16; TEMP 36.9; O2SAT 96
[2017-11-13 13:15] VITALS: BP 138/81
== END 2017-11-13 13:26 | disposition home or self-care (01) ==
LOC: SDC 10:02 → AC 10:02
PROVIDERS: Family Provider Internal Medicine; PCP Internal Medicine; Visit Provider Surgery
PROC: (CPT 36561; principal; 2017-11-13 11:45)
DX: C83.38 Diffuse large B-cell lymphoma, lymph nodes of multiple sites (principal); Z45.2 Encounter for adjustment and management of vascular access device; K21.9 Gastro-esophageal reflux disease without esophagitis; K59.00 Constipation, unspecified; E78.5 Hyperlipidemia, unspecified; N19 Unspecified kidney failure; Z79.899 Other long term (current) drug therapy; Z87.891 Personal history of nicotine dependence
CPT/HCPCS: 36561; 71045; 77001; J7120; C1788

== ENCOUNTER → 2018-01-16 12:58 | Outpatient (CLI) | payer OTHER, SELFPAY ==
--- NOTE | 2018-01-16 13:01 | CT_ITS ---
STUDY: CT ABDOMEN AND PELVIS WITH CONTRAST REASON FOR EXAM: Male, 62 years old. Lymphoma RADIATION DOSAGE (If Supplied By Facility): CTDIvol = ( 16.24 ) mGy, DLP = ( 1966.28 ) mGycm TECHNIQUE: Transaxial images were obtained from the dome of the diaphragm to the symphysis pubis without oral contrast. 100 ml of Isovue 300 contrast was administered. Sagittal and coronal images were reconstructed. Individualized dose optimization techniques were used for this CT. COMPARISON: None. FINDINGS: Small residual left pleural effusion. The visualized portions of the heart are within normal limits. Normal liver. Normal gallbladder and extrahepatic biliary system. Normal spleen. Normal pancreas. Normal bilateral adrenal glands. Normal right kidney. The masslike lesion has decreased in size which surrounds the left kidney. There is extension into the left adrenal gland and the mass abuts the tail of the pancreas. Mass surrounds the abdominal aorta and may invade the left psoas muscle. Abnormal lymph nodes in the left paracolic gutter have decreased in size. Normal visualized stomach. Normal small intestine. Normal colon. The appendix is visualized and appears normal. There is diffuse atherosclerotic calcification of the abdominal aorta, without a demonstrated aneurysm. Normal inferior vena cava. Normal retroperitoneum. Normal urinary bladder. Normal visualized prostate gland. Normal abdominal wall. There are diffuse degenerative changes of the visualized lumbar spine. CT/Abdomen/Pelvis WITH Contrast IMPRESSION: The masslike lesion has decreased in size which surrounds the left kidney. There is extension into the left adrenal gland and the mass abuts the tail of the pancreas. Mass surrounds the abdominal aorta and may invade the left psoas muscle. However the size of this mass in this region has decreased. Abnormal lymph nodes in the left paracolic gutter have decreased in size. Overall findings are suggestive of lymphoma which has improved. Electronically Signed: Cedrick Mahoney MD at 17:19 EDT , Service support ,
--- NOTE | 2018-01-16 13:02 | CT_ITS ---
STUDY: CT SOFT TISSUE NECK WITH CONTRAST REASON FOR EXAM: Male, 62 years old. Lymphoma RADIATION DOSAGE (If Supplied By Facility): CTDIvol = ( 16.24 ) mGy, DLP = ( 1966.28 ) mGycm TECHNIQUE: The patient was scanned in a multi-detector CT scanner. High resolution transaxial imaging was performed following intravenous administration of 100 ml of Isovue 300 contrast material. Sagittal and coronal images were reconstructed. Individualized dose optimization techniques were used for this CT. COMPARISON: REPORT ONLY: PT Body Nov 05 2017 10:45am and CT Chest Oct 24 2017 9:25am FINDINGS: Normal bilateral parotid glands. Normal bilateral model maker plastic spaces. Normal bilateral parapharyngeal spaces. Normal bilateral carotid spaces. There is a right Port-A-Cath and/or mediport in place. The tip is in the superior vena cava. Normal bilateral sublingual and submandibular glands and spaces. Normal visualized nasopharynx. Normal retropharyngeal space. Normal perivertebral space. Normal visualized bilateral faucial tonsils. The visualized tongue, tongue base and oropharynx are normal. The visualized cervical lymph nodes (levels I-) are within normal size limits, and maintain normal morphology. There is no demonstrated solid or cystic mass lesion. There is no abnormal contrast enhancement. Normal epiglottis, bilateral vallecula and hypopharynx. The pre-epiglottic and paraglottic adipose spaces are normal. Normal visualized bilateral piriform sinuses, aryepiglottic folds, vocal cords, and arytenoid-cricoid articulations. Normal subglottic trachea. The thyroid is heterogenous. It contains nodules. This should be further evaluated with ultrasound. This can be performed as an outpatient. Normal visualized pulmonary apices. Normal visualized paranasal sinuses. There is multilevel degenerative changes of the cervical spine. CT/Soft Tissue Neck WITH Contrast IMPRESSION: There is multilevel degenerative changes of the cervical spine. The thyroid is heterogenous. It contains nodules. This should be further evaluated with ultrasound. This can be performed as an outpatient. Abnormal lymph nodes in NOT visualized along the anterior neck. Electronically Signed: Cedrick Mahoney MD at 16:59 EDT , Service support ,
--- NOTE | 2018-01-16 13:02 | CT_ITS ---
STUDY: CT CHEST WITH CONTRAST REASON FOR EXAM: Male, 62 years old. Lymphoma RADIATION DOSAGE (If Supplied By Facility): CTDIvol = ( 16.24 ) mGy, DLP = ( 1966.28 ) mGycm TECHNIQUE: Transaxial imaging was performed following intravenous administration of 100 ml of Isovue 300 contrast material. Individualized dose optimization techniques were used for this CT. COMPARISON: 10.24.17 FINDINGS: Small residual left pleural effusion. There is no pneumothorax. There is a right Port-A-Cath and/or mediport in place. The tip is in the superior vena cava. Normal heart and pericardium. Normal mediastinum. Normal hilar regions. Normal enhanced pulmonary arteries. Normal aorta arch and descending thoracic aorta. There are multi-level degenerative changes of the thoracic spine. There is no demonstrated abnormality of the visualized upper abdomen. CT/Chest WITH Contrast IMPRESSION: Small residual left pleural effusion. No evidence for metastatic disease. Electronically Signed: Cedrick Mahoney MD at 17:02 EDT , Service support ,
== END ==
PROVIDERS: Family Provider Internal Medicine; PCP Internal Medicine; Referring Provider Internal Medicine Hematology & Oncology; Visit Provider Internal Medicine Hematology & Oncology
DX: C83.30 Diffuse large B-cell lymphoma, unspecified site (principal); E04.2 Nontoxic multinodular goiter
CPT/HCPCS: 70491; 71260; 74177; Q9967

== ENCOUNTER 2018-06-24 09:21 | Day surgery (SDC) | payer OTHER, SELFPAY ==
[2018-04-25 13:43] VITALS: BMI 24.5
[2018-06-24 09:45] VITALS: BP 126/81; PULSE 70; RESP 16; TEMP 36.6; O2SAT 98; BMI 25.0
--- NOTE | 2018-06-24 10:29 | PCM.HP.STD ---
Problem List (1) Screening for colon cancer Status: Acute History of Present Illness Date of Admission: 06/24/18 The patient is a 63 year old M who presents for screening colonoscopy. About 8 months ago I placed a port secondary to him being treated for B-cell lymphoma. Past Medical History Past Medical History (Chronic Problems): Chronic Problems (Last Reviewed 04/25/18 @ 13:42 by Rosie Correa) Anemia (Chronic) Medical History: Medical History (Last Reviewed 06/24/18 @ 10:29 by Jermain Vitale MD) DLBCL (diffuse large B cell lymphoma) (Acute) C83.30 Kidney failure (Acute) N19 Abdominal mass (Acute) R19.00 Lymphadenopathy (Acute) R59.1 Pleural effusion, left (Acute) J90 Hyperlipemia E78.5 PORT PLACEMENT 818 Pleural effusion J90 left Allergies allopurinol Adverse Reaction (Intermediate, Verified 04/25/18 13:42) Rash Home Medications: Ambulatory Orders Medication Instructions Recorded Atorvastatin Calcium [Lipitor] 20 mg PO QHS 10/23/17 Ensure Enlive 120 ml PO PRN PRN 11/12/17 Lidocaine/Prilocaine 30 gm TP DAILY PRN PRN #1 cream..g. 11/14/17 [Lidocaine-Prilocaine Cream] Multivit with Minerals/Lutein 1 each PO DAILY 06/24/18 [Theratrum Complete 50 Plus Tab] Surgical History: Surgical History (Last Reviewed 06/24/18 @ 10:29 by Jermain Vitale MD) History of thoracentesis Z98.890 Surgical History: no surgical history Psychiatric History: No pertinent psych hx Smoking Status: Former smoker - *Family History Maternal Family History: Family History (Last Reviewed 04/25/18 @ 13:42 by Rosie Correa) Other No pertinent family history History Items: Dementia Review of Systems Cardiovascular: Denies: Chest Pain, Chest Pressure, Chest Tightness, Palpitations Respiratory: Denies: Cough, Hemoptysis, Shortness of breath at rest, Shortness of breath upon exertion, Wheezing Gastrointestinal: Denies: Abdominal Pain, Constipation, Diarrhea, Hematemesis, Nausea, Melena, Vomiting VTE Information - Inpt Only VTE Present on Admission: No VTE Mechan Device Prophylaxis: None VTE Pharm Prophylaxis ordered?: No Reason prophylaxis not ordered:: Treatment Not Indicated Patient Problems: Active and Suspected Problems (Last Reviewed 04/25/18 @ 13:42 by Rosie Correa) Screening for colon cancer (Acute) - Physical Exam General: Alert, Oriented x3 Lungs: Clear to auscultation Cardiovascular: Regular rate, Regular Rhythm, No murmurs Abdomen: Bowel Sounds Present, Soft, Non Tender, Non-Distended Vital Signs Temp Pulse Resp BP Pulse Ox 97.8 F 70 16 126/81 H 98 06/24/18 09:45 06/24/18 09:45 06/24/18 09:45 06/24/18 09:45 06/24/18 09:45 Oxygen Delivery Method Room Air Weight: 179 lb 3.773 oz Body Mass Index (BMI) 25.0 Assessment/Plan All Active Problems (Last Reviewed 04/25/18 @ 13:42 by Rosie Correa) Screening for colon cancer (Acute) Fever (Acute) Rash (Acute) Hepatitis C virus infection (Ruled-out) Educational circumstance (Acute) DLBCL (diffuse large B cell lymphoma) (Acute) Kidney failure (Acute) Abdominal mass (Acute) Lymphadenopathy (Acute) Pleural effusion, left (Acute) My plan is to perform a colonoscopy on the patient. Risk benefits have been reviewed and the patient agrees to proceed. Risks include bleeding possible injury to the colon which could require further surgeries and possible colostomy.
--- NOTE | 2018-06-24 10:51 | OP.ENDO_ITS ---
06/24/2018 Comfort Johnson Md Re : Colonoscopy procedure for Artis Hooper Dear Alex This procedure was performed on Sunday, June 24, 2018. My impressions and recommendations are as follows: Impressions : - The entire examined colon is normal. No specimens collected. - The examination was otherwise normal on direct and retroflexion views. Recommendations : - Discharge patient to home. - Resume previous diet. - Continue present medications. - Repeat colonoscopy in 10 years for screening purposes. - Return to primary care physician at appointment to be scheduled. My findings are described in the full procedure note, which is enclosed. If I can be of further assistance, please feel free to contact me at Doctor phone number(s): , Fax: [phone], Work: . Sincerely, MD Jermain Ortez MD 06/24/2018 10:50:51 AM This report has been signed electronically.
[2018-06-24 10:52] VITALS: BP 126/81; BP 95/67; PULSE 65; RESP 16; TEMP 36.3; O2SAT 97
[2018-06-24 10:55] VITALS: BP 126/81; BP 91/63; PULSE 70; RESP 16; O2SAT 98
[2018-06-24 11:00] VITALS: BP 126/81; BP 98/69; PULSE 72; RESP 16; O2SAT 97
[2018-06-24 11:05] VITALS: BP 100/68; BP 126/81; PULSE 68; RESP 16; O2SAT 96
== END 2018-06-24 11:39 | disposition home or self-care (01) ==
LOC: EN 09:24 → AC 09:42
PROVIDERS: Family Provider Internal Medicine; PCP Internal Medicine; Referring Provider Internal Medicine; Visit Provider Surgery
PROC: 0DJD8ZZ Inspection of Lower Intestinal Tract, Via Natural or Artificial Opening Endoscopic (ICD-10-PCS; CPT 45378; principal; 2018-06-24 10:25)
DX: Z12.11 Encounter for screening for malignant neoplasm of colon (principal); C83.30 Diffuse large B-cell lymphoma, unspecified site; D64.9 Anemia, unspecified; I49.9 Cardiac arrhythmia, unspecified; E78.5 Hyperlipidemia, unspecified; Z87.891 Personal history of nicotine dependence
CPT/HCPCS: 45378; J7120; A4216

== ENCOUNTER → 2018-10-28 13:26 | Outpatient (CLI) | payer OTHER, SELFPAY ==
[2018-08-01 13:34] VITALS: BMI 25.4
--- NOTE | 2018-10-28 13:33 | CT_ITS ---
STUDY: CT ABDOMEN AND PELVIS WITH CONTRAST REASON FOR EXAM: Male, 63 years old. Follow-up lymphoma. No problems. RADIATION DOSAGE (If Supplied By Facility): CTDIvol = ( 18.10 ) mGy, DLP = ( 3269.28 ) mGycm TECHNIQUE: Transaxial images were obtained from the dome of the diaphragm to the symphysis pubis without oral contrast. 100mL IV Isovue 300 was administered. Sagittal and coronal images were reconstructed. Individualized dose optimization techniques were used for this CT. COMPARISON: PET/CT scan, April 22, 2018. CT the abdomen and pelvis, January 16, 2018 FINDINGS: The visualized lung bases are unremarkable. The visualized portions of the heart are within normal limits. Normal liver. Normal gallbladder and extrahepatic biliary system. Normal spleen. Normal pancreas. Normal bilateral adrenal glands. Normal right kidney. Normal right ureter. The left kidney is small in size measuring 7.5 cm in length. There is mild cortical thinning and decreased cortical enhancement when compared to the right. No obvious mass or renal calculi. There is marked stranding of the perinephric fat particularly medial to the kidney which appears unchanged from the previous study. Normal left ureter. Normal visualized stomach. Normal small intestine. Normal colon. There is non-visualization of the appendix. There is diffuse atherosclerotic calcification of the abdominal aorta, without a demonstrated aneurysm. Normal inferior vena cava. Mild stranding in the retroperitoneum about the aorta at the level of the left renal vein and artery. This is associated with stranding seen about the medial aspect of the left kidney described above. There is a vague soft tissue density anterior to the aorta at the level of the renal veins similar to the stranding in the adjacent subcutaneous fat and this measures 1.7 x 1.5 x 2.3 cm. Normal urinary bladder. Annual prostate. There are phleboliths in the pelvis without lymphadenopathy. No free air or free fluid is seen within the peritoneal cavity. Normal abdominal wall. There are diffuse degenerative changes of the visualized lumbar spine. CT/Abdomen/Pelvis W IV Cont ONLY IMPRESSION: 1. Stranding in left perinephric fat. This appears decreased in degree from the prior PET/CT. Focal area of stranding anterior to the aorta which appears unchanged. Both areas are markedly decreased from the prior CT. 2. No evidence of metastatic disease. There is no other major interval change. Electronically Signed: Cory Arredondo DO at 17:07 EDT Tel [phone], Service support ,
--- NOTE | 2018-10-28 13:33 | CT_ITS ---
STUDY: CT CHEST WITH CONTRAST REASON FOR EXAM: Male, 63 years old. Lymphoma follow-up. No new problems. RADIATION DOSAGE (If Supplied By Facility): CTDIvol = ( 18.10 ) mGy, DLP = ( 3269.28 ) mGycm TECHNIQUE: Transaxial imaging was performed following intravenous administration of 100mL IV Isovue 300. Multiplanar coronal and sagittal images were reformatted. Individualized dose optimization techniques were used for this CT. COMPARISON: PET/CT scan, April 22, 2018. FINDINGS: There is a right jugular central venous Port-A-Cath with its tip in the distal superior vena cava. The lungs are normal. There is no demonstrated pleural abnormality. Normal heart and pericardium. There is nonspecific subcentimeter mediastinal lymphadenopathy which is unchanged from the prior PET scan. Normal hilar regions. Normal enhanced pulmonary arteries. Normal aorta arch and descending thoracic aorta. There are multi-level degenerative changes of the thoracic spine. There is a small left kidney which demonstrates limited enhancement when compared to the right. There is associated stranding in the pararenal fat. This appears unchanged from the prior CT. Of the abdomen is otherwise unremarkable. CT/Chest WITH Contrast IMPRESSION: No acute abnormality or interval change when compared to the PET/CT scan of April 22, 2018. Electronically Signed: Cory Arredondo DO at 16:32 EDT Tel [phone], Service support ,
--- NOTE | 2018-10-28 13:33 | CT_ITS ---
STUDY: CT SOFT TISSUE NECK WITH CONTRAST REASON FOR EXAM: Male, 63 years old. Lymphoma follow-up. RADIATION DOSAGE (If Supplied By Facility): CTDIvol = ( 18.10 ) mGy, DLP = ( 3269.28 ) mGycm TECHNIQUE: The patient was scanned in a multi-detector CT scanner. High resolution transaxial imaging was performed following intravenous administration of 100mL IV Isovue 300. Sagittal and coronal images were reconstructed. Individualized dose optimization techniques were used for this CT. COMPARISON: PET/CT scan, April 22, 2018. FINDINGS: Normal bilateral parotid glands. Normal bilateral penciller spaces. Normal bilateral parapharyngeal spaces. Normal bilateral carotid spaces. Normal bilateral sublingual and submandibular glands and spaces. Normal visualized nasopharynx. Normal retropharyngeal space. Normal perivertebral space. Normal visualized bilateral faucial tonsils. The visualized tongue, tongue base and oropharynx are normal. The visualized cervical lymph nodes (levels I-) are within normal size limits, and maintain normal morphology. There is no demonstrated solid or cystic mass lesion. There is no abnormal contrast enhancement. Normal epiglottis, bilateral vallecula and hypopharynx. The pre-epiglottic and paraglottic adipose spaces are normal. Normal visualized bilateral piriform sinuses, aryepiglottic folds, vocal cords, and arytenoid-cricoid articulations. Normal subglottic trachea. Normal bilateral lobes of the thyroid gland. Normal visualized pulmonary apices. Normal visualized paranasal sinuses. There is flattening of the cervical lordosis with degenerative changes of the cervical spine. CT/Soft Tissue Neck WITH Contrast IMPRESSION: Normal enhanced CT examination of the soft tissues of the neck. Electronically Signed: Cory Arredondo DO at 16:25 EDT Tel [phone], Service support ,
[2018-10-28 14:26] LABS: CREATININE FINGERSTICK 1.6 mg/dL (0.70-1.30)
--- NOTE | 2018-10-28 14:40 | NURSING ---
Port was accessed for CT. Than de- accessed once test was complete with IV flush than heparin flush.
== END ==
PROVIDERS: Family Provider Internal Medicine; PCP Internal Medicine; Referring Provider Internal Medicine Hematology & Oncology; Visit Provider Internal Medicine Hematology & Oncology
DX: C83.30 Diffuse large B-cell lymphoma, unspecified site (principal)
CPT/HCPCS: 70491; 71260; 74177; Q9967; A4216

== ENCOUNTER → 2019-04-07 12:18 | Outpatient (CLI) | payer OTHER, SELFPAY ==
[2019-02-06 13:19] VITALS: BMI 26.4
--- NOTE | 2019-04-07 12:19 | CT_ITS ---
STUDY: CT ABDOMEN AND PELVIS WITH CONTRAST REASON FOR EXAM: Male, 63 years old. PT STATED F/U TO HX OF NON H[place]GKINS LYMPHOMA RADIATION DOSAGE (If Supplied By Facility): CTDIvol = ( 18.48 ) mGy, DLP = ( 2605.35 ) mGycm TECHNIQUE: Transaxial images were obtained from the dome of the diaphragm to the symphysis pubis without oral contrast. IV 100mL Isovue-300 was administered. Sagittal and coronal images were reconstructed. Individualized dose optimization techniques were used for this CT. COMPARISON: 10/28/2018, PET scan 04/22/2018 FINDINGS: The visualized lung bases are unremarkable. The visualized portions of the heart are within normal limits. Normal liver. Normal gallbladder and extrahepatic biliary system. Normal spleen. Normal pancreas. Normal bilateral adrenal glands. There is mild cortical atrophy of the right kidney, consistent with chronic medical renal disease. There is severe cortical atrophy of the left kidney, consistent with chronic medical renal disease. Retroperitoneal and perinephric stranding involving the left side is stable since the prior study. No hydronephrosis. Normal visualized stomach. Normal small intestine. There are multiple colonic diverticula consistent with diverticulosis. There is non-visualization of the appendix. Normal abdominal aorta. Normal inferior vena cava. Mild retroperitoneal adenopathy with a single discrete enlarged lymph node on axial image 40 measuring 1.6 x 1.5 x 2.3 cm (AP by transverse by craniocaudal), stable. Urinary bladder is grossly unchanged. There is enlargement of the prostate gland. Normal abdominal wall. There are diffuse degenerative changes of the visualized lumbar spine. CT/Abdomen/Pelvis W IV Cont ONLY IMPRESSION: 1. Stable retroperitoneal soft tissue density/lymph node. Stable retroperitoneal left perinephric stranding. Electronically Signed: John Simons MD ([place]) at 12:50 EST , Service support ,
--- NOTE | 2019-04-07 12:19 | CT_ITS ---
STUDY: CT SOFT TISSUE NECK WITH CONTRAST REASON FOR EXAM: Male, 63 years old. 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 High resolution transaxial imaging was performed following intravenous administration of IV 100mL Isovue-300. Sagittal and coronal images were reconstructed. Individualized dose optimization techniques were used for this CT. COMPARISON: CT soft tissues of the neck with contrast dated October 28, 2018 FINDINGS: Mild atherosclerotic stenosis seen in the mid aspect of the cervical portion of the left internal carotid artery. Normal bilateral parotid glands. Normal bilateral alliance manager spaces. Normal bilateral parapharyngeal spaces. Normal bilateral carotid spaces. Normal bilateral sublingual and submandibular glands and spaces. Normal visualized nasopharynx. Normal retropharyngeal space. Normal perivertebral space. Normal visualized bilateral faucial tonsils. The visualized tongue, tongue base and oropharynx are normal. The visualized cervical lymph nodes (levels I-) are within normal size limits, and maintain normal morphology. There is no demonstrated solid or cystic mass lesion. There is no abnormal contrast enhancement. Normal epiglottis, bilateral vallecula and hypopharynx. The pre-epiglottic and paraglottic adipose spaces are normal. Normal visualized bilateral piriform sinuses, aryepiglottic folds, vocal cords, and arytenoid-cricoid articulations. Normal subglottic trachea. Normal bilateral lobes of the thyroid gland. Normal visualized pulmonary apices. Normal visualized paranasal sinuses. There is multilevel degenerative changes of the cervical spine. CT/Soft Tissue Neck WITH Contrast IMPRESSION: 1. Negative enhanced CT examination of the soft tissues of the neck. 2. Stable when compared to the CT of the neck dated October 28, 2018. Electronically Signed: Cezar Franco MD at 14:02 EST , Service support ,
--- NOTE | 2019-04-07 12:19 | CT_ITS ---
STUDY: CT CHEST/THORAX WITH CONTRAST REASON FOR EXAM: Male, 63 years old. 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 Multiplanar coronal and sagittal images were reformatted. Individualized dose optimization techniques were used for this CT. COMPARISON: CT chest with IV contrast October 29, 2018. FINDINGS: There is focal subsegmental atelectasis in the posterior basilar right lower lobe. [place], mildly ill-defined 11 mm density in the basilar right upper lobe at the mid chest (series 8 image 67, series 601 image 105) is likely a focus of inflammatory change. Stable minimal 2 to 3 mm calcified granuloma also in the right upper lobe There is no demonstrated pleural abnormality. Normal heart and pericardium. There are stable nonspecific lymph nodes in the mediastinum and central hilar regions. Normal enhanced pulmonary arteries. Normal aorta arch and descending thoracic aorta. There are stable multi-level spondylotic degenerative changes of the thoracic spine. Focal, well corticated invaginations of lower thoracic and upper vertebral endplates consistent with benign Schmorl''s nodes and/or other old injury also unchanged. Stable degenerative arthrosis of the bilateral acromioclavicular joints. There is stable left renal atrophy and diminished contrast enhancement along the medial upper pole of left kidney. Ill-defined stranding in the upper left retroperitoneum extending along the medial gland and upper pole left kidney also unchanged. CT/Chest WITH Contrast IMPRESSION: Focal inflammatory change in the basilar right upper lobe as well as focal subsegmental atelectasis in the posterior basilar right lower lobe. Otherwise, stable enhanced CT Chest examination since October 2018, as described. No new demonstrated adenopathy. Electronically Signed: Toño Negrete MD at 14:14 EST , Service support ,
[2019-04-07 12:36] LABS: CREATININE FINGERSTICK 1.6 mg/dL (0.70-1.30)
== END ==
PROVIDERS: Family Provider Internal Medicine; PCP Internal Medicine; Referring Provider Internal Medicine Hematology & Oncology; Visit Provider Internal Medicine Hematology & Oncology
DX: C83.30 Diffuse large B-cell lymphoma, unspecified site (principal)
CPT/HCPCS: 70491; 71260; 74177; Q9967

== ENCOUNTER → 2019-11-05 14:15 | Outpatient (CLI) | payer MEDICARE, BC, SELFPAY ==
[2019-08-06 14:10] VITALS: BMI 27.1
--- NOTE | 2019-11-05 14:18 | US_ITS ---
STUDY: RENAL ULTRASOUND - COMPLETE REASON FOR EXAM: Male, 64 years old. Chronic kidney disease TECHNIQUE: Ultrasound evaluation of the kidneys was performed with real-time and static [place]-scale imaging. COMPARISON: CT dated 04/07/19 FINDINGS: RIGHT KIDNEY: Normal location of the right kidney, which is normal in size. The right kidney measures 10.3 cm. There is a normal cortex of the right kidney. There is no right renal mass or cyst. There are no right renal calculi. There is no right hydronephrosis. DISTAL RIGHT URETER: There is non-visualization of the distal right ureter. There is no demonstrated right ureterovesical junction calculus. There is a visualized right ureteral jet. LEFT KIDNEY: The left kidney is atrophic. The left kidney measures 8.8 cm. There is a normal cortex of the left kidney. There is no left renal mass or cyst. There are no left renal calculi. There is no left hydronephrosis. DISTAL LEFT URETER: There is non-visualization of the distal left ureter. There is no demonstrated left ureterovesical junction calculus. There is no demonstrated left ureteral jet. BLADDER: The urinary bladder is partially distended and appears unremarkable. US/Kidney and Bladder IMPRESSION: Atrophic left kidney which is not significantly changed when compared with the CT dated 04/07/19. Normal right kidney. No hydronephrosis. Electronically Signed: Jose Payton, at 17:14 EDT Tel , Service support ,
== END ==
PROVIDERS: PCP Internal Medicine; Referring Provider Internal Medicine; Visit Provider Internal Medicine
DX: N18.3 Chronic kidney disease, stage 3 (moderate) (principal)
CPT/HCPCS: 76770

== ENCOUNTER → 2019-12-12 10:38 | Outpatient (CLI) | payer MEDICARE, BC, SELFPAY ==
[2019-11-12 15:03] VITALS: BMI 26.2
[2019-12-12 10:44] LABS: Bacteria 0 SEEN /hpf (None Seen); Mucous, Urine 0 SEEN /hpf (<or=2+); White Blood Cells 0 SEEN /hpf (0-5)
[2019-12-12 11:19] LABS: 24HR. UA Prot. Total Volume 2625 mL; Urine Protein (24 Hour) < 6.0 mg/dL (<11.9)
[2019-12-12 11:56] LABS: Color, Urine Yellow (Yellow); Glucose, Dipstick Normal (Normal); Ketone-Dipstick Negative (Negative); Leukocyte Esterase-Dipstick Negative /ul (Negative); Nitrite-Dipstick Negative (Negative); Occult Blood-Urine 10 /ul (Negative); Protein-Dipstick Negative (Negative); Specific Gravity, Urine 1.015 (1.002-1.030); Urine Bilirubin Dipstick Negative (Negative); Urine Clarity Clear (Clear); Urine Urobilinogen Normal (Normal)
[2019-12-12 12:13] LABS: Protein, Urine (Random) 17.4 mg/dL (<11.9); Protein:Creat Ratio 103 mg/g CRE (0-200)
[2019-12-12 12:17] LABS: Creat.Clear Total Volume 2625 mL; Creatinine Clearance 66 ml/min (100-200); Creatinine Serum Creat 1.6 mg/dL (0.8-1.3); Creatinine Urine 58.3 mg/dL (NO RANGE EST.); EST Glomerular Filtration Rate 46 mL/min (>60); Est Glom Filt Rate - Afr Amer 55 mL/min (>60)
[2019-12-12 12:18] LABS: Anion Gap 6 (5-15); BUN 20 mg/dL (7-18); BUN/Creat Ratio 12.3 RATIO (10-20); Calcium,Total 8.6 mg/dL (8.5-10.1); Chloride 103 mmol/L (98-107); Creatinine, Serum 1.62 mg/dL (0.70-1.30); EST Glomerular Filtration Rate 46 mL/min (>60); Est Glom Filt Rate - Afr Amer 55 mL/min (>60); Glucose 126 mg/dL (74-106); Phosphorus 2.9 mg/dL (2.5-4.9); Potassium 3.7 mmol/L (3.5-5.1); Sodium Level 138 mmol/L (136-145)
[2019-12-12 12:20] LABS: PTHIN 88.6 pg/mL (18.4-80.1)
[2019-12-12 12:21] LABS: Red Blood Cells-Urine 0-5 SEEN /hpf (0-5); Squamous Epithelial Cells - UA 0-5 SEEN /hpf (0-5)
[2019-12-12 12:23] LABS: Vitamin D,25 Hydroxy 31.8 ng/mL
[2019-12-17 16:08] LABS: PROEL- A/G Ratio 1.5 (0.7-1.7); PROEL- Albumin 3.8 g/dL (2.9-4.4); PROEL- Alpha-1 Globulin 0.2 g/dL (0.0-0.4); PROEL- Alpha-2 Globulin 0.7 g/dL (0.4-1.0); PROEL- Beta Globulin 0.9 g/dL (0.7-1.3); PROEL- Gamma Globulin 0.7 g/dL (0.4-1.8); PROEL- Globulin, Total 2.5 g/dL (2.2-3.9); PROEL- TOTAL PROTEIN 6.3 g/dL (6.0-8.5); PROELU- Albumin, Urine 17.9 % (.); PROELU- Alpha-1-Globulin,Ur 3.2 % (.); PROELU- Alpha-2-Globulin,Ur 28.6 % (.); PROELU- Beta Globulin, Ur 30.1 % (.); PROELU- Gamma Globulin, Ur 20.2 % (.); Total Protein, Ur 9.3 mg/dL (Not Estab.)
== END ==
PROVIDERS: PCP Internal Medicine; Referring Provider Internal Medicine; Visit Provider Internal Medicine
DX: N18.3 Chronic kidney disease, stage 3 (moderate) (principal)
CPT/HCPCS: 36415; 80048; 81001; 81050; 82306; 82570; 82575; 83970; 84100; 84156; 84165; 84166

== ENCOUNTER → 2020-03-29 07:31 | Outpatient (CLI) | payer MEDICARE, BC, SELFPAY ==
[2020-02-11 13:44] VITALS: BMI 26.2
[2020-03-27 12:53] LABS: Anion Gap 3 (5-15); BUN 16 mg/dL (7-18); BUN/Creat Ratio 10.8 RATIO (10-20); Calcium,Total 8.9 mg/dL (8.5-10.1); Chloride 106 mmol/L (98-107); Creatinine, Serum 1.48 mg/dL (0.70-1.30); EST Glomerular Filtration Rate 51 mL/min (>60); Est Glom Filt Rate - Afr Amer 61 mL/min (>60); Glucose 122 mg/dL (74-106); Potassium 4.1 mmol/L (3.5-5.1); Sodium Level 137 mmol/L (136-145)
--- NOTE | 2020-03-29 07:32 | CT_ITS ---
STUDY: CT CHEST WITH CONTRAST REASON FOR EXAM: Male, 64 years old. 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 Multiplanar coronal and sagittal images were reformatted. Individualized dose optimization techniques were used for this CT. COMPARISON: Comparison is made with prior examination dated 04/07/2019. FINDINGS: Stable minimal increased signal markings at the lung bases suggestive of a possible scarring. There is no demonstrated pleural abnormality. Normal heart and pericardium. There are multiple small lymph nodes within the mediastinum, which are normal in size and morphology most compatible with reactive lymph hyperplasia. Normal hilar regions. Normal enhanced pulmonary arteries. Normal aorta arch and descending thoracic aorta. There are multi-level degenerative changes of the thoracic spine. Stable left renal atrophy. CT/Chest WITH Contrast IMPRESSION: Stable examination. Electronically Signed: Ramos Gore, at 14:34 EST , Service support ,
--- NOTE | 2020-03-29 07:32 | CT_ITS ---
STUDY: CT ABDOMEN AND PELVIS WITH CONTRAST REASON FOR EXAM: Male, 64 years old. 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 IV 100mL Isovue-300 was administered. Sagittal and coronal images were reconstructed. Individualized dose optimization techniques were used for this CT. COMPARISON: Comparison is made with prior examination dated 04/07/2019. FINDINGS: Stable minimal linear scarring at the right lung base. The visualized portions of the heart are within normal limits. Normal liver. Normal gallbladder and extrahepatic biliary system. Normal spleen. Normal pancreas. Normal bilateral adrenal glands. Normal right kidney. There is severe cortical atrophy of the left kidney, consistent with chronic medical renal disease. Normal visualized stomach. Normal small intestine. There are multiple colonic diverticula consistent with diverticulosis. The appendix is visualized and appears normal. There is scattered atherosclerotic calcification of the abdominal aorta, without a demonstrated aneurysm. Normal inferior vena cava. There is borderline retroperitoneal lymphadenopathy with enlarged nodes no greater than 10mm in the short axis diameter. The largest lymph node measures 1.6 cm x 1.5 cm. This is in the left periaortic region. This is unchanged. Diffuse bladder wall thickening. There is a small umbilical hernia containing fat. There are diffuse degenerative changes of the visualized lumbar spine. CT/Abdomen/Pelvis W IV Cont ONLY IMPRESSION: Stable examination. Marked atrophy of the left kidney. Electronically Signed: Ramos Gore, at 13:36 EST , Service support ,
--- NOTE | 2020-03-29 07:32 | CT_ITS ---
STUDY: CT SOFT TISSUE NECK WITH CONTRAST REASON FOR EXAM: Male, 64 years old. 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 High resolution transaxial imaging was performed following intravenous administration of IV 100mL Isovue-300. Sagittal and coronal images were reconstructed. Individualized dose optimization techniques were used for this CT. COMPARISON: Comparison is made with prior study dated 04/07/2019. FINDINGS: Normal bilateral parotid glands. Normal bilateral pest control operator spaces. Normal bilateral parapharyngeal spaces. Normal bilateral carotid spaces. Normal bilateral sublingual and submandibular glands and spaces. Normal visualized nasopharynx. Normal retropharyngeal space. Normal perivertebral space. Normal visualized bilateral faucial tonsils. The visualized tongue, tongue base and oropharynx are normal. The visualized cervical lymph nodes (levels I-) are within normal size limits, and maintain normal morphology. There is no demonstrated solid or cystic mass lesion. There is no abnormal contrast enhancement. Normal epiglottis, bilateral vallecula and hypopharynx. The pre-epiglottic and paraglottic adipose spaces are normal. Normal visualized bilateral piriform sinuses, aryepiglottic folds, vocal cords, and arytenoid-cricoid articulations. Normal subglottic trachea. Normal bilateral lobes of the thyroid gland. Normal visualized pulmonary apices. Normal visualized paranasal sinuses. There is multilevel degenerative changes of the cervical spine. CT/Soft Tissue Neck WITH Contrast IMPRESSION: Normal enhanced CT examination of the soft tissues of the neck. Stable examination. Electronically Signed: Ramos Gore, at 12:29 EST , Service support ,
== END ==
PROVIDERS: PCP Internal Medicine; Referring Provider Internal Medicine Hematology & Oncology; Visit Provider Internal Medicine Hematology & Oncology
DX: Z01.818 Encounter for other preprocedural examination (principal); C83.30 Diffuse large B-cell lymphoma, unspecified site
CPT/HCPCS: 36415; 70491; 71260; 74177; 80048; 96360; J7040; Q9967

== ENCOUNTER 2020-06-08 08:17 | Outpatient (RCR) | payer MEDICARE, BC, SELFPAY ==
[2020-04-14 13:10] VITALS: BMI 26.6
== END 2020-06-08 23:59 ==
LOC: IMMUN 08:17
PROVIDERS: PCP Internal Medicine; Visit Provider Family Medicine
DX: Z23 Encounter for immunization (principal)
CPT/HCPCS: 0011A; 0012A

== ENCOUNTER → 2020-10-21 11:34 | Outpatient (CLI) | payer MEDICARE, BC, SELFPAY ==
[2020-08-11 12:56] VITALS: BMI 26.4
[2020-10-21 12:24] LABS: Color, Urine Yellow (Yellow); Glucose, Dipstick Normal (Normal); Ketone-Dipstick Negative (Negative); Leukocyte Esterase-Dipstick Negative /ul (Negative); Nitrite-Dipstick Negative (Negative); Occult Blood-Urine Negative /ul (Negative); Protein-Dipstick Negative (Negative); Urine Bilirubin Dipstick Negative (Negative); Urine Clarity Clear (Clear); Urine Urobilinogen Normal (Normal); Urine pH 6.5 (5.0 - 8.0)
[2020-10-21 12:37] LABS: Protein, Urine (Random) < 6.0 mg/dL (<11.9)
[2020-10-21 12:53] LABS: Anion Gap 5 (5-15); BUN 18 mg/dL (7-18); BUN/Creat Ratio 11.4 RATIO (10-20); Calcium,Total 9.5 mg/dL (8.5-10.1); Chloride 102 mmol/L (98-107); Creatinine, Serum 1.58 mg/dL (0.70-1.30); EST Glomerular Filtration Rate 47 mL/min (>60); Est Glom Filt Rate - Afr Amer 57 mL/min (>60); Glucose 82 mg/dL (74-106); Phosphorus 2.8 mg/dL (2.5-4.9); Potassium 4.1 mmol/L (3.5-5.1); Sodium Level 136 mmol/L (136-145)
[2020-10-21 12:54] LABS: PTHIN 54.5 pg/mL (18.4-80.1)
[2020-10-21 12:57] LABS: Vitamin D,25 Hydroxy 28.9 ng/mL
== END ==
PROVIDERS: PCP Internal Medicine; Referring Provider Internal Medicine; Visit Provider Internal Medicine
DX: N18.30 Chronic kidney disease, stage 3 unspecified (principal); N25.81 Secondary hyperparathyroidism of renal origin
CPT/HCPCS: 36415; 80048; 81002; 82306; 82570; 83970; 84100; 84156

== ENCOUNTER → 2020-10-29 10:19 | Outpatient (CLI) | payer MEDICARE, BC, SELFPAY ==
[2020-08-11 12:56] VITALS: BMI 26.4
[2020-10-29 11:51] LABS: Cholesterol 253 mg/dL (200); High Density Lipoprotein 77 mg/dL; Triglycerides 197 mg/dL; Very Low Density Lipoprotein 39 mg/dL (5-40)
== END ==
PROVIDERS: PCP Internal Medicine; Referring Provider Internal Medicine; Visit Provider Internal Medicine
DX: Z13.6 Encounter for screening for cardiovascular disorders (principal)
CPT/HCPCS: 36415; 80061

== ENCOUNTER 2021-05-06 13:09 | Outpatient (CLI) | payer MEDICARE, SELFPAY ==
[2021-05-06 14:57] LABS: Protein, Urine (Random) < 6.0 mg/dL (<11.9)
[2021-05-06 15:05] LABS: Anion Gap 5 (5-15); BUN 14 mg/dL (7-18); Calcium,Total 8.7 mg/dL (8.5-10.1); Chloride 101 mmol/L (98-107); Creatinine, Serum 1.56 mg/dL (0.70-1.30); EST Glomerular Filtration Rate 47 mL/min (>60); Est Glom Filt Rate - Afr Amer 57 mL/min (>60); Glucose 74 mg/dL (74-106); Sodium Level 135 mmol/L (136-145)
[2021-05-06 15:10] LABS: Vitamin D,25 Hydroxy 37.2 ng/mL
== END 2021-05-06 23:59 | disposition short-term general hospital (02) ==
LOC: LAB 13:14
PROVIDERS: PCP Internal Medicine; Referring Provider Internal Medicine Nephrology; Visit Provider Internal Medicine Nephrology
DX: N18.30 Chronic kidney disease, stage 3 unspecified (principal); E55.9 Vitamin D deficiency, unspecified
CPT/HCPCS: 36415; 80048; 82306; 82570; 84156

== ENCOUNTER 2021-06-15 15:31 | Outpatient (CLI) | payer MEDICARE, SELFPAY ==
--- NOTE | 2021-06-15 15:34 | EKG12_ITS ---
Test Reason : PRE OP Blood Pressure : / mmHG Vent. Rate : 077 BPM Atrial Rate : 077 BPM P-R Int : 148 ms QRS Dur : 074 ms QT Int : 388 ms P-R-T Axes : 053 046 038 degrees QTc Int : 439 ms Sinus rhythm with Premature supraventricular complexes Septal infarct , age undetermined Abnormal ECG Confirmed by ELI COY, PARIS ([id number]), mapping editor SARA CARPENTER ([id number]) on 06/17/2021 7:51:03 AM Referred By: Dipika Vega Confirmed By:PARIS BENITEZ MD
== END 2021-06-15 23:59 | disposition home or self-care (01) ==
LOC: PSN 15:33
PROVIDERS: PCP Internal Medicine; Referring Provider Internal Medicine Hematology & Oncology; Visit Provider Internal Medicine Hematology & Oncology
DX: R00.1 Bradycardia, unspecified (principal)
CPT/HCPCS: 93005

== ENCOUNTER → 2021-08-31 | Outpatient (CLI) | payer MEDICARE, SELFPAY ==
--- NOTE | 2021-08-31 11:04 | ECHOD_ITS ---
Reason For Study: Arrhythmia Procedure This was a 2D Doppler, Color Flow transthoracic echocardiogram. Contrast injection was performed. Exam performed in department. Left Ventricle Normal LV size. Left ventricular systolic function is normal. The estimated ejection fraction is 60 %. Stage 1 diastolic dysfunction. No regional wall motion abnormalities noted. Right Ventricle Normal RV size. Normal systolic function. Atria Normal left atrium. Normal right atrium. Mitral Valve Normal mitral valve. Tricuspid Valve Normal tricuspid valve. Mild tricuspid valve insufficiency. Pulmonary artery systolic pressure is 26 mmHg. Aortic Valve Normal aortic valve. Mild (1+) aortic valve insufficiency. Pulmonic Valve Normal pulmonic valve. Great Vessels Normal aortic root. The pulmonary artery is normal size. Normal inferior vena cava. Pericardium/Pleural No pericardial effusion. Medication Diluted definity 3ml given slow IV push to enhance endocardial definition. MMode/2D Measurements & Calculations LVIDd: 5.2 cm IVSd: 1.1 cm Ao root diam: 3.7 cm LVIDs: 4.0 cm LVPWd: 1.0 cm RVDd: 3.3 cm FS: 23.0 % LAV(MOD-bp): 43.8 ml LVAd ap4: 32.2 cm2 SV(MOD-sp4): 48.4 ml LAV(MOD-bp) Indexed: 21.5 ml/m2 LVLd ap4: 8.6 cm LAV(MOD-sp2): 46.5 ml EDV(MOD-sp4): 99.8 ml LAV(MOD-sp4): 36.8 ml EDV(sp4-el): 102.7 ml LVAs ap4: 21.7 cm2 LVLs ap4: 7.7 cm ESV(MOD-sp4): 51.4 ml ESV(sp4-el): 51.9 ml EF(MOD-sp4): 48.5 % EF(sp4-el): 49.4 % SV(sp4-el): 50.8 ml LA A4 area: 15.0 cm2 LA dimension(2D): 3.6 cm RA A4 area: 14.4 cm2 Doppler Measurements & Calculations MV E max tom: 48.7 cm/sec Lat Peak E' Tom: 8.7 cm/sec Med Peak E' Tom: 6.8 cm/sec MV A max tom: 72.5 cm/sec E/E' lat: 5.6 E/E' med: 7.1 MV E/A: 0.67 Ao V2 max: 102.7 cm/sec LV V1 max: 78.5 cm/sec PA V2 max: 70.5 cm/sec Ao max P.2 mmHg LV V1 max P.5 mmHg Ao V2 mean: 77.5 cm/sec Ao mean P.5 mmHg Ao V2 VTI: 20.2 cm TR max tom: 240.3 cm/sec TR max P.1 mmHg ECHO/Echo Complete W/ Contrast Interpretation Summary Normal LV size. Left ventricular systolic function is normal. The estimated ejection fraction is 60 %. Stage 1 diastolic dysfunction. Pulmonary artery systolic pressure is 26 mmHg. The global longitudinal strain is moderately abnormal. The global longitudinal strain = -13.3% (abnormal). Ordering Physician: Jasper Allen Referring Physician: Comfort Johnson Performed By: Bonnie Navarrete, RDCS, RVT
== END | disposition home or self-care (01) ==
LOC: CVS 11:03
PROVIDERS: PCP Internal Medicine; Referring Provider Internal Medicine Cardiovascular Disease; Visit Provider Internal Medicine Cardiovascular Disease
DX: R94.31 Abnormal electrocardiogram [ECG] [EKG] (principal)
CPT/HCPCS: 93306; Q9957; A4216; C8929

== ENCOUNTER → 2021-10-26 | Outpatient (CLI) | payer MEDICARE, SELFPAY ==
[2021-10-26 12:47] LABS: Protein:Creat Ratio 115 mg/g CRE (0-200)
[2021-10-26 12:52] LABS: Hematocrit 42.3 % (40-54); Hemoglobin 14.3 g/dL (13.0-16.5); Mean Corp Hgb Conc 33.8 g/dL (32-36); Mean Corpuscular Hgb 32.2 pg (27.0-32.0); Mean Corpuscular Volume 95.3 fL (80-94); Mean Platelet Vol. 9.4 fl (6.2-12.0); Platelet Count 208 K/mm3 (150-450); RBC Distribution Width CV 12.1 % (11.6-14.6); RBC Distribution Width SD 42.3 fl (35.1-43.9); Red Blood Count 4.44 M/mm3 (4.6-6.2); White Blood Count 5.4 K/mm3 (4.4-11.0)
[2021-10-26 13:17] LABS: Albumin, Serum 3.7 g/dL (3.2-5.0); BUN 17 mg/dL (7-18); BUN/Creat Ratio 11.7 RATIO (10-20); Calcium,Total 8.7 mg/dL (8.5-10.1); Chloride 106 mmol/L (98-107); Creatinine, Serum 1.45 mg/dL (0.70-1.30); EST Glomerular Filtration Rate 52 mL/min (>60); Est Glom Filt Rate - Afr Amer 62 mL/min (>60); Glucose 69 mg/dL (74-106); Phosphorus 2.2 mg/dL (2.5-4.9); Potassium 3.8 mmol/L (3.5-5.1); Sodium Level 141 mmol/L (136-145)
[2021-10-26 13:18] LABS: Vitamin D,25 Hydroxy 45.2 ng/mL
[2021-10-27 07:59] LABS: PTHIN 88.7 pg/mL (18.4-80.1)
== END | disposition home or self-care (01) ==
LOC: LAB 11:11
PROVIDERS: PCP Internal Medicine; Referring Provider Internal Medicine Nephrology; Visit Provider Internal Medicine Nephrology
DX: N18.31 Chronic kidney disease, stage 3a (principal); N25.1 Nephrogenic diabetes insipidus; E55.9 Vitamin D deficiency, unspecified
CPT/HCPCS: 36415; 80069; 82306; 82570; 83970; 84156; 85027

== ENCOUNTER → 2022-03-10 | Outpatient (CLI) | payer MEDICARE, SELFPAY ==
--- NOTE | 2022-03-10 09:04 | ECHODONC_ITS ---
Version 2 Reason For Study: HTN, Nonrheumatic MR Procedure This was a 2D Doppler, Color Flow transthoracic echocardiogram. Myocardial strain analysis was performed in this exam to aid in the assessment of cardiac function. Exam performed in department. Left Ventricle Normal LV size. Left ventricular systolic function is normal. The estimated ejection fraction is 57 %. Stage 1 diastolic dysfunction. No regional wall motion abnormalities noted. Right Ventricle Normal RV size. Normal systolic function. Atria Normal left atrium. Normal right atrium. Mitral Valve Normal mitral valve. Tricuspid Valve Normal tricuspid valve. Trivial tricuspid valve insufficiency. Aortic Valve Trisinus/trileaflet aortic valve. Mild diffuse aortic valve thickening. Pulmonic Valve Normal pulmonic valve. Great Vessels Normal aortic root. The pulmonary artery is normal size. Normal inferior vena cava. Pericardium/Pleural No pericardial effusion. MMode/2D Measurements & Calculations LVIDd: 4.3 cm IVSd: 1.1 cm Ao root diam: 3.6 cm LVIDs: 2.9 cm LVPWd: 1.1 cm RVDd: 3.5 cm FS: 31.2 % LAV(MOD-bp): 47.3 ml LVAd ap4: 28.0 cm2 LVAd ap2: 27.2 cm2 LAV(MOD-bp) Indexed: 23.2 ml/m2 LVLd ap4: 8.2 cm LVLd ap2: 8.5 cm LAV(MOD-sp2): 43.7 ml EDV(MOD-sp4): 78.6 ml EDV(MOD-sp2): 75.1 ml LAV(MOD-sp4): 36.9 ml EDV(sp4-el): 81.3 ml EDV(sp2-el): 74.1 ml LVAs ap4: 17.2 cm2 LVAs ap2: 16.5 cm2 LVLs ap4: 7.3 cm LVLs ap2: 7.1 cm ESV(MOD-sp4): 33.8 ml ESV(MOD-sp2): 33.7 ml ESV(sp4-el): 34.2 ml ESV(sp2-el): 32.4 ml EF(MOD-sp4): 56.9 % EF(MOD-sp2): 55.2 % EF(sp4-el): 58.0 % SV(MOD-sp4): 44.7 ml SV(MOD-sp2): 41.4 ml SV(sp4-el): 47.1 ml LA dimension(2D): 3.6 cm LA A4 area: 13.9 cm2 RA A4 area: 12.5 cm2 Time Measurements MV dec time: 0.29 sec Doppler Measurements & Calculations MV E max tom: 45.8 cm/sec Lat Peak E' Tom: 9.1 cm/sec Med Peak E' Tom: 6.5 cm/sec MV A max tom: 53.2 cm/sec E/E' lat: 5.0 E/E' med: 7.0 MV E/A: 0.86 MV dec slope: 161.7 cm/sec2 Ao V2 max: 110.8 cm/sec LV V1 max: 84.9 cm/sec Ao max P.9 mmHg LV V1 max P.9 mmHg Ao V2 mean: 79.9 cm/sec LV V1 mean P.6 mmHg Ao mean P.9 mmHg LV V1 mean: 60.0 cm/sec Ao V2 VTI: 26.5 cm LV V1 VTI: 19.4 cm AV (velocity ratio): 0.73 PA V2 max: 71.1 cm/sec TR max tom: 218.7 cm/sec TR max P.3 mmHg ECHO/ONC Echo Complete Interpretation Summary Normal LV size. Left ventricular systolic function is normal. The estimated ejection fraction is 57 %. Trivial tricuspid valve insufficiency. Stage 1 diastolic dysfunction. The global longitudinal strain is normal. The global longitudinal strain = -17. 3 % (normal). The global longitudinal strain has improved. Ordering Physician: Jasper Allen Referring Physician: Rin Rao Performed By: Lisa Cespedes RDCS
== END | disposition home or self-care (01) ==
LOC: CVS 09:03
PROVIDERS: PCP Nurse Practitioner Adult Health; Referring Provider Internal Medicine Cardiovascular Disease; Visit Provider Internal Medicine Cardiovascular Disease
DX: I34.0 Nonrheumatic mitral (valve) insufficiency (principal); I10 Essential (primary) hypertension
CPT/HCPCS: 93306; 93356

== ENCOUNTER → 2022-10-30 | Outpatient (CLI) | payer MEDICARE, SELFPAY ==
[2022-10-30 11:47] LABS: Anion Gap 3 (5-15); BUN 14 mg/dL (7-18); BUN/Creat Ratio 9.2 RATIO (10-20); Calcium,Total 8.8 mg/dL (8.5-10.1); Chloride 106 mmol/L (98-107); Creatinine, Serum 1.52 mg/dL (0.70-1.30); EST Glomerular Filtration Rate 49 mL/min (>60); Est Glom Filt Rate - Afr Amer 59 mL/min (>60); Glucose 120 mg/dL (74-106); Potassium 4.2 mmol/L (3.5-5.1); Sodium Level 138 mmol/L (136-145)
[2022-10-30 11:51] LABS: Protein, Urine (Random) 7.3 mg/dL (<11.9); Protein:Creat Ratio 134 mg/g CRE (0-200)
== END | disposition home or self-care (01) ==
PROVIDERS: PCP Nurse Practitioner Adult Health; Referring Provider Internal Medicine Nephrology; Visit Provider Internal Medicine Nephrology
DX: N18.31 Chronic kidney disease, stage 3a (principal)
CPT/HCPCS: 36415; 80048; 82570; 84156

== ENCOUNTER → 2023-09-21 | Outpatient (CLI) | payer MEDICARE, SELFPAY ==
[2023-09-21 12:58] LABS: AST(SGOT) 29 U/L (15-37); Alanine Aminotransfer ALT/SGPT 30 U/L (16-61); Albumin, Serum 3.9 g/dL (3.2-5.0); Alkaline Phosphatase 81 U/L (45-117); Bilirubin, Direct 0.16 mg/dL (0.00-0.30); Cholesterol 180 mg/dL (200); Globulin 3.6 g/dL (2.2-4.2); Protein, Total 7.5 g/dL (6.4-8.2); Triglycerides 108 mg/dL; Very Low Density Lipoprotein 22 mg/dL (5-40)
[2023-09-22 06:51] LABS: High Density Lipoprotein 84 mg/dL
== END | disposition home or self-care (01) ==
LOC: PAVLAB 09:56
PROVIDERS: PCP Nurse Practitioner Adult Health; Referring Provider Internal Medicine Cardiovascular Disease; Visit Provider Internal Medicine Cardiovascular Disease
DX: E78.5 Hyperlipidemia, unspecified (principal)
CPT/HCPCS: 36415; 80061; 80076

== ENCOUNTER → 2023-10-17 | Outpatient (CLI) | payer MEDICARE, SELFPAY ==
--- NOTE | 2023-10-17 12:57 | ECHODONC_ITS ---
Reason For Study: HTN Procedure This was a 2D Doppler, Color Flow transthoracic echocardiogram. Myocardial strain analysis was performed in this exam to aid in the assessment of cardiac function. Exam performed in department. Left Ventricle Normal LV size. Left ventricular systolic function is normal. The estimated ejection fraction is 60 %. No regional wall motion abnormalities noted. Right Ventricle Normal RV size. Normal systolic function. Atria Normal left atrium. Mitral Valve Normal mitral valve. Tricuspid Valve Normal tricuspid valve. Aortic Valve Normal aortic valve. Trisinus/trileaflet aortic valve. Mild (1+) aortic valve insufficiency. Pulmonic Valve Normal pulmonic valve. Great Vessels Normal aortic root. The pulmonary artery is normal size. Normal inferior vena cava. Pericardium/Pleural No pericardial effusion. MMode/2D Measurements & Calculations LVIDd: 4.4 cm IVSd: 0.91 cm Ao root diam: 3.5 cm LVIDs: 3.2 cm LVPWd: 0.95 cm RVDd: 3.1 cm FS: 28.0 % LAV(MOD-bp): 41.4 ml LVAd ap4: 30.4 cm2 SV(MOD-sp4): 50.8 ml LAV(MOD-bp) Indexed: 20.3 ml/m2 LVLd ap4: 8.2 cm LAV(MOD-sp2): 40.2 ml EDV(MOD-sp4): 92.8 ml LAV(MOD-sp4): 36.9 ml EDV(sp4-el): 95.6 ml LVAs ap4: 18.7 cm2 LVLs ap4: 7.4 cm ESV(MOD-sp4): 42.0 ml ESV(sp4-el): 40.0 ml EF(MOD-sp4): 54.7 % EF(sp4-el): 58.2 % SV(sp4-el): 55.6 ml LA A4 area: 15.4 cm2 LA dimension(2D): 3.4 cm RA A4 area: 15.5 cm2 TAPSE: 2.0 cm Time Measurements MV dec time: 0.18 sec Doppler Measurements & Calculations MV E max tom: 65.3 cm/sec Lat Peak E' Tom: 10.1 cm/sec Med Peak E' Tom: 7.0 cm/sec MV A max tom: 67.2 cm/sec E/E' lat: 6.5 E/E' med: 9.4 MV E/A: 0.97 Ao V2 max: 95.8 cm/sec AI max tom: 446.6 cm/sec LV V1 max: 68.3 cm/sec Ao max P.7 mmHg AI max P.8 mmHg LV V1 max P.9 mmHg AI dec slope: 200.5 cm/sec2 AI P1/2t: 652.5 msec PA V2 max: 69.6 cm/sec TR max tom: 214.8 cm/sec TR max P.4 mmHg ECHO/ONC Echo Complete Interpretation Summary Normal LV size. Left ventricular systolic function is normal. The estimated ejection fraction is 60 %. Structurally normal valves. Ordering Physician: Jasper Allen Referring Physician: SAMANTHA WILLIS Performed By: Brionna Allison RDCS
== END | disposition home or self-care (01) ==
PROVIDERS: PCP Nurse Practitioner Adult Health; Referring Provider Internal Medicine Cardiovascular Disease; Visit Provider Internal Medicine Cardiovascular Disease
DX: I34.0 Nonrheumatic mitral (valve) insufficiency (principal)
CPT/HCPCS: 93306; 93356

== ENCOUNTER → 2023-10-24 | Outpatient (CLI) | payer MEDICARE, SELFPAY ==
[2023-10-24 13:53] LABS: Anion Gap 7 (5-15); BUN 18 mg/dL (7-18); BUN/Creat Ratio 12.8 RATIO (10-20); Calcium,Total 8.6 mg/dL (8.5-10.1); Chloride 102 mmol/L (98-107); Creatinine, Serum 1.41 mg/dL (0.70-1.30); EST Glomerular Filtration Rate 53 mL/min (>60); Est Glom Filt Rate - Afr Amer 64 mL/min (>60); Glucose 101 mg/dL (74-106); Potassium 3.7 mmol/L (3.5-5.1); Sodium Level 137 mmol/L (136-145)
[2023-10-24 14:01] LABS: Protein, Urine (Random) 6.7 mg/dL (<11.9); Protein:Creat Ratio 196 mg/g CRE (0-200)
== END | disposition home or self-care (01) ==
PROVIDERS: PCP Nurse Practitioner Adult Health; Referring Provider Internal Medicine Nephrology; Visit Provider Internal Medicine Nephrology
DX: N18.31 Chronic kidney disease, stage 3a (principal)
CPT/HCPCS: 36415; 80048; 82570; 84156

== ENCOUNTER → 2024-05-07 | Outpatient (CLI) | payer MEDICARE, SELFPAY ==
[2024-05-07 11:44] LABS: Hemoglobin 14.6 g/dL (13.0-16.5); Mean Corpuscular Hgb 31.5 pg (27.0-32.0); Mean Corpuscular Volume 92.9 fL (80-94); Mean Platelet Vol. 8.8 fl (6.2-12.0); Platelet Count 237 K/mm3 (150-450); RBC Distribution Width CV 12.3 % (11.6-14.6); Red Blood Count 4.63 M/mm3 (4.6-6.2); White Blood Count 6.3 K/mm3 (4.4-11.0)
[2024-05-07 12:18] LABS: ALB/GLOB Ratio 1.1 RATIO (0.9-2.4); AST(SGOT) 15 U/L (15-37); Alanine Aminotransfer ALT/SGPT 25 U/L (16-61); Albumin, Serum 3.8 g/dL (3.2-5.0); Alkaline Phosphatase 83 U/L (45-117); Anion Gap 6 (5-15); BUN 14 mg/dL (7-18); BUN/Creat Ratio 9.4 RATIO (10-20); Calcium,Total 9.2 mg/dL (8.5-10.1); Chloride 105 mmol/L (98-107); Cholesterol 163 mg/dL (200); Creatinine, Serum 1.49 mg/dL (0.70-1.30); EST Glomerular Filtration Rate 50 mL/min (>60); Est Glom Filt Rate - Afr Amer 60 mL/min (>60); Globulin 3.4 g/dL (2.2-4.2); Glucose 106 mg/dL (74-106); High Density Lipoprotein 88 mg/dL; PSA,Total - Annual Screen 1.26 ng/mL (0.00-4.00); Potassium 4.4 mmol/L (3.5-5.1); Protein, Total 7.2 g/dL (6.4-8.2); Sodium Level 139 mmol/L (136-145); Triglycerides 105 mg/dL; Very Low Density Lipoprotein 21 mg/dL (5-40)
== END | disposition home or self-care (01) ==
LOC: LAB 11:12
PROVIDERS: Nurse Practitioner Family; PCP Nurse Practitioner Adult Health; Referring Provider Nurse Practitioner Adult Health; Visit Provider Nurse Practitioner Adult Health
DX: Z13.0 Encounter for screening for diseases of the blood and blood-forming organs and certain disorders involving the immune mechanism (principal); Z13.1 Encounter for screening for diabetes mellitus; E78.2 Mixed hyperlipidemia; Z12.5 Encounter for screening for malignant neoplasm of prostate; Z13.29 Encounter for screening for other suspected endocrine disorder
CPT/HCPCS: 36415; 80053; 80061; 82248; 84153; 84443; 85027; G0103

== ENCOUNTER → 2024-11-17 | Outpatient (CLI) | payer MEDICARE, SELFPAY ==
[2024-11-17 12:36] LABS: Creatinine, Urine (random) 33.30 mg/dL (39.00-259.00); Protein, Urine (Random) < 6.0 mg/dL (0.0-12.0); Protein:Creat Ratio UNABLE TO CALCULATE mg/g CRE (0-200)
[2024-11-17 12:51] LABS: Anion Gap 12 (5-15); BUN 15 mg/dL (4-19); BUN/Creat Ratio 11.2 RATIO (10-20); Calcium,Total 9.0 mg/dL (7.6-11.0); Carbon Dioxide 23.7 mmol/L (21.0-32.0); Chloride 103 mmol/L (98-108); Glucose 90 mg/dL (70-99); Potassium 4.0 mmol/L (3.3-5.1)
== END | disposition home or self-care (01) ==
LOC: LAB 11:52
PROVIDERS: PCP Nurse Practitioner Adult Health; Referring Provider Internal Medicine Nephrology; Visit Provider Internal Medicine Nephrology
DX: N18.31 Chronic kidney disease, stage 3a (principal)
CPT/HCPCS: 36415; 80048; 82570; 84156